=== PATIENT | female | born 1955 | race Caucasian/White ===

== ENCOUNTER → 2020-07-20 09:00 | Outpatient (BNVA) | payer MEDICARE, BC, SELFPAY | PROVIDERS: Family Provider Nurse Practitioner; PCP Nurse Practitioner Family; Visit Provider Nurse Practitioner Family | DX: E61.2 Magnesium deficiency (principal); I10 Essential (primary) hypertension | CPT/HCPCS: 80053; 80061; 83735; 84439; 84443 ==

== ENCOUNTER → 2021-01-04 15:56 | Outpatient (BNVA) | payer MEDICARE, BC, SELFPAY | PROVIDERS: Family Provider Nurse Practitioner; PCP Nurse Practitioner Family; Visit Provider Nurse Practitioner Family | DX: M15.1 Heberden's nodes (with arthropathy) (principal); M25.50 Pain in unspecified joint | CPT/HCPCS: 85651; 86140; 86160; 86162; 86235; 86255; 86376; 86431 ==

== ENCOUNTER → 2022-01-16 10:19 | Outpatient (BNVA) | payer BC, MEDICARE, SELFPAY | PROVIDERS: Family Provider Nurse Practitioner; PCP Nurse Practitioner Family; Visit Provider Family Medicine | DX: N39.0 Urinary tract infection, site not specified (principal) | CPT/HCPCS: 81000 ==

== ENCOUNTER → 2022-01-17 09:21 | Outpatient (BNVA) | payer MEDICARE, BC, SELFPAY | PROVIDERS: Family Provider Nurse Practitioner; PCP Nurse Practitioner Family; Visit Provider Family Medicine | DX: N39.0 Urinary tract infection, site not specified (principal); I10 Essential (primary) hypertension | CPT/HCPCS: 80053; 80061; 85025 ==

== ENCOUNTER → 2022-01-25 09:55 | Outpatient (BNVA) | payer BC, MEDICARE, SELFPAY | PROVIDERS: Family Provider Nurse Practitioner; PCP Nurse Practitioner Family; Visit Provider Nurse Practitioner Family | DX: N39.0 Urinary tract infection, site not specified (principal) | CPT/HCPCS: 81000 ==

== ENCOUNTER → 2022-08-28 14:47 | Outpatient (BNVA) | payer BC, MEDICARE, SELFPAY | PROVIDERS: Family Provider Nurse Practitioner; PCP Nurse Practitioner Family; Visit Provider Nurse Practitioner Family | DX: R05.9 Cough, unspecified (principal) | CPT/HCPCS: 71046 ==

== ENCOUNTER → 2022-09-26 10:29 | Outpatient (BNVA) | payer BC, MEDICARE, SELFPAY | PROVIDERS: Family Provider Nurse Practitioner; PCP Nurse Practitioner Family; Visit Provider Nurse Practitioner Family | DX: R06.2 Wheezing (principal) | CPT/HCPCS: 71046 ==

== ENCOUNTER → 2022-11-07 15:55 | Outpatient (BNVA) | payer BC, MEDICARE, SELFPAY | PROVIDERS: Family Provider Nurse Practitioner; PCP Nurse Practitioner Family; Visit Provider Internal Medicine Cardiovascular Disease | DX: R06.02 Shortness of breath (principal); I10 Essential (primary) hypertension; R07.9 Chest pain, unspecified; R00.2 Palpitations; R53.83 Other fatigue; Z79.01 Long term (current) use of anticoagulants | CPT/HCPCS: 36415; 80048; 83880 ==

== ENCOUNTER → 2022-11-22 08:39 | Outpatient (BNVA) | payer BC, MEDICARE, SELFPAY | PROVIDERS: Family Provider Nurse Practitioner; PCP Nurse Practitioner Family; Visit Provider Internal Medicine Cardiovascular Disease | DX: R00.2 Palpitations (principal); R06.02 Shortness of breath; R42 Dizziness and giddiness; R53.83 Other fatigue | CPT/HCPCS: 80048; 83880 ==

== ENCOUNTER 2022-12-09 13:01 | Outpatient (CLI) | payer BC, MEDICARE, SELFPAY ==
--- NOTE | 2022-12-09 13:30 | USCV_ITS ---
Kendra Rushing Age: 67 Gender: F : 1955 Exam Date: 12/09/2022 13:16 Ordering Phys: Juan Rivas MD ([email or web address]) Technologist: Jag Alexis Exam Location: [facility] Indication: Chest pain/ sob BP: 164 / 95 HR: 49 Rhythm: Other Technical Quality: Adequate MEASUREMENTS (Male / Female) Normal Values 2D ECHO LV Diastolic Diameter PLAX 4.3 cm 4.2 - 5.9 / 3.9 - 5.3 cm LV Systolic Diameter PLAX 2.7 cm IVS Diastolic Thickness 0.9 cm 0.6 - 1.0 / 0.6 - 0.9 cm IVS Systolic Thickness 1.4 cm LVPW Diastolic Thickness 1.3 cm 0.6 - 1.0 / 0.6 - 0.9 cm LVPW Systolic Thickness 1.5 cm LVOT Diameter 2.0 cm LV Ejection Fraction 2D Teich 66.3 % LV Ejection Fraction MOD 2C 61.6 % LV Ejection Fraction 2C AL 64.8 % LA Diameter 3.5 cm LA Width 3.4 cm LA Height 4.6 cm RA Width 3.3 cm RA Height 4.8 cm Aorta at Sinotubular Diameter 2.4 cm IVC Diameter 1.6 cm M-MODE Aortic Annulus Diameter 3.0 cm LA Ao Ratio MM 1.3 MV E Point Septal Separation 0.6 cm DOPPLER AV Peak Velocity 172.3 cm/s LVOT Peak Velocity 99.0 cm/s AV Area Cont Eq vti 1.8 cm squared AV Area Cont Eq pk 1.9 cm squared MV Peak Velocity 100.0 cm/s MV Area PHT 2.8 cm squared Mitral E to A Ratio 0.6 MV E' Velocity 24.5 cm/s Mitral E to MV E' Ratio 5.0 Mitral E to LV E' Lateral Ratio 5.0 Mitral E to LV E' Septal Ratio 5.2 TR Peak Velocity 214.4 cm/s TR Peak Gradient 18.4 mmHg TR Mean Velocity 178.7 cm/s TR Mean Gradient 13.5 mmHg TR Velocity Time Integral 50.0 cm Right Atrial Pressure 3.0 mmHg Pulmonary Artery Systolic Pressu 21.4 mmHg PV Peak Velocity 77.0 cm/s RV Acceleration Time 0.1 s RV Ejection Time 0.3 s RV AcT/ET 0.3 FINDINGS Left Ventricle Normal left ventricular size, systolic function and wall thickness, with no regional wall motion abnormalities. Left ventricular ejection fraction is estimated at 65 %. Normal diastolic function. Right Ventricle Normal right ventricular size and systolic function. Right ventricular systolic pressure 21.4 mmHg. Right Atrium Normal right atrial size. Left Atrium Normal left atrial size. Mitral Valve Structurally normal mitral valve. No mitral valve stenosis. Mild mitral valve regurgitation. Aortic Valve Probably trileaflet aortic valve. No aortic valve stenosis. No aortic valve regurgitation. Tricuspid Valve Structurally normal tricuspid valve. Pulmonic Valve Structurally normal pulmonic valve. Trace pulmonary valve regurgitation. Pericardium No pericardial effusion. Aorta Normal size aortic root and proximal ascending aorta. IVC Normal IVC dimension with >50% respiratory change of the inferior vena cava. CONCLUSIONS 1. Normal left ventricular size, systolic function and wall thickness, with no regional wall motion abnormalities. Left ventricular ejection fraction is estimated at 65 %. Normal diastolic function. 2. Mild mitral valve regurgitation. 3. No prior similar studies to compare. Candie Barker MD (Electronically Signed) Final Date: 09 December 2022 20:15 S
== END 2022-12-09 13:02 | disposition home or self-care (01) ==
LOC: RAD 13:03
PROVIDERS: Family Provider Nurse Practitioner; PCP Nurse Practitioner Family; Visit Provider Internal Medicine Cardiovascular Disease
DX: R07.9 Chest pain, unspecified (principal); R06.02 Shortness of breath; I34.0 Nonrheumatic mitral (valve) insufficiency
CPT/HCPCS: 93306

== ENCOUNTER 2022-12-18 10:26 | Outpatient (CLI) | payer BC, MEDICARE, SELFPAY ==
[2022-12-18 11:14] VITALS: BMI 30.8
--- NOTE | 2022-12-18 11:27 | NMCV_ITS ---
NM jacob perf SPECT r/s* [id number] Kendra Rushing Age: 67 Gender: F : 1955 Exam Date: 12/18/2022 11:27 Ordering Phys: Juan Rivas MD ([email or web address]) Technologist: SASKIA Owen Exam Location: [facility] Indications: CORONARY ANGIOPLASTY STATUS STRESS TEST Please see separate stress test report in [facility] for full findings IMAGE PROTOCOL Rest/Stress 1 Lexiscan Day Radiopharmaceutical Dose (mCi) Administration Site Administered by Rest: Tc-99m 10.9 IV SASKIA Owen Sestamibi Stress:Tc-99m 32.5 IV SASKIA Snider Sestamibi Rest: 18-Dec-2022 60 Discovery 630 Stress: 18-Dec-2022 30 Discovery 630 0.4mg Lexiscan. Images obtained in supine and prone position. SPECT RESULTS Technical Quality: Excellent Raw Data Analysis: Normal Image Corrections: No attenuation or motion correction applied Summed Stress Score: 0 Summed Rest Score: 0 Summed Difference Score: 0 PERFUSION FINDINGS Uniform myocardial tracer uptake with no significant perfusion abnormalities FUNCTIONAL RESULTS (calculated via Gated SPECT) Stress Image LV EF (%): 67 Stress EDV (mL):91 TID: 1.1 Stress ESV (mL):30 FUNCTIONAL FINDINGS: Segmental wall motion analysis revealing no gross wall motion abnormalities IMPRESSIONS 1. Unremarkable Myocardial perfusion imaging. 2. Normal LV ejection fraction of 67%. 3. LV wall motion analysis revealing no gross wall motion abnormalities. 4. Normal LV volume Low probability for coronary ischemia, based on the above findings No similar previous studies are available for comparison Dr Juan Rivas MD FACC (Electronically Signed) Final Date: 19 December 2022 00:30 S
--- NOTE | 2022-12-18 11:27 | ECG_ITS ---
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 Interpretive Statements NAME OF STUDY: LEXISCAN SESTAMIBI STRESS TEST INDICATION: Cpressure/ fatigue, PROCEDURE: At the baseline, the EKG revealed sinus bradycardia with a diffuse nonspecific ST-T changes. The baseline heart was 71 bpm with a blood pressue of 109/84 mm of Hg Lexiscan was infused over a period of 20 seconds. A total of 0.4 milligrams of Lexiscan was infused. The stress phase was continued for a total of 5 minutes. Heart rate at the end of the stress phase was 71 bpm with a blood pressure mm of 134/81 Hg. The EKG at the peak infusion revealed no significant changes. Few PVCs were noted during the recovery phase Sestamibi was injected 20 seconds after the Lexiscan infusion. Heart rate at the end of the recovery phase was 64 bpm with a blood pressure of 108/66 mm of Hg. CONCLUSION: 1. No significant EKG changes with the LexiScan infusion 2. No LexiScan induced chest pain or cardiac arrhythmia 3. Normal blood pressure and heart rate response 4. Sestamibi/sestamibi perfusion scan pending; see separate report. Electronically Signed On 12-21-2022 13:56:59 BLANK DRILLER by Juan Rivas M.D. [id number]
[2022-12-18] MEDS: regadenoson 0.4 Mg/5 ml Syringe IVP (13:05)
[2022-12-18] MEDS: ondansetron 2 mg/ML SDV 2 mL 4 MG IVP (13:20)
[2022-12-18] MEDS: aminophylline 25 mg/mL SDV 10 mL IVP ×2 (13:21→13:23)
[2022-12-18 13:33] VITALS: BP 116/71; PULSE 65
== END 2022-12-18 10:27 | disposition home or self-care (01) ==
LOC: CDL 10:29
PROVIDERS: PCP Nurse Practitioner Family; Visit Provider Internal Medicine Cardiovascular Disease
DX: R07.89 Other chest pain (principal); R53.83 Other fatigue; Z98.61 Coronary angioplasty status
CPT/HCPCS: 36415; 78452; 85379; 93017; 96374; 96375; A9500; J0280; J2405; J2785

== ENCOUNTER → 2023-01-02 15:06 | Outpatient (BNVA) | payer BC, MEDICARE, SELFPAY | PROVIDERS: PCP Nurse Practitioner Family; Visit Provider Nurse Practitioner Family | DX: R60.9 Edema, unspecified (principal) | CPT/HCPCS: 36415; 80048; 83880 ==

== ENCOUNTER 2023-01-10 11:48 | Outpatient (CLI) | payer BC, MEDICARE, SELFPAY ==
--- NOTE | 2023-01-10 11:00 | MR_ITS ---
WS: [id number] MRI HEAD WITH CONTRAST WITH ATTENTION TO THE INTERNAL AUDITORY CANALS TECHNIQUE: Sagittal T1, T2 axial, T2 axial flair, axial susceptibility weighted imaging, axial diffus ion weighted images, and coronal T2 images were obtained. Pre and post T1 axial and post T1 coronal i mages. ADC and FSPGR images. Post gadolinium images with attention to the internal auditory canals. A xial fiesta imaging. CLINICAL INFORMATION: sudden onset hearing loss COMPARISON: None. FINDINGS: No evidence of restricted diffusion to suggest acute ischemia. Ventricular system and basal cisterns are patent. No suspicious intracranial signal abnormalities. Normal posterior fossa. Normal vascular flow voids at the skull base. No extra-axial fluid collections. No evidence of mass or mass effect. M ild mucosal thickening in the paranasal sinuses. Normal posterior nasopharynx and parapharyngeal fat. No hemosiderin on susceptibly weighted images. Proximal 7th and 8th cranial nerves are normal in appearance. Normal trigeminal nerve root entry zone s. No evidence of enhancing IAC or CP angle mass. No abnormal gadolinium enhancement. Normal dural ve nous sinuses. Normal optic chiasm and pituitary infundibulum. Normal cavernous sinuses and Meckel's c ave. MR/MR iac's wo/w con* [id number] IMPRESSION: 1. No evidence of enhancing IAC or CP angle mass. Normal 7th and 8th nerve tom ts. 2. Normal trigeminal nerve root entry zones. 3. No restricted diffusion to suggest acute ischemia. 4. Small amount of fluid in the RIGHT maxillary sinus with mild mucosal thicke temitope. 5. No hemosiderin on susceptibly weighted images. 6. No suspicious intracranial signal abnormalities.
[2023-01-10] MEDS: gadobenate dimeglumine 20 mL vial IV (13:15)
== END 2023-01-10 11:49 | disposition home or self-care (01) ==
LOC: RAD 11:51
PROVIDERS: PCP Nurse Practitioner Family; Visit Provider Otolaryngology
DX: H91.90 Unspecified hearing loss, unspecified ear (principal)
CPT/HCPCS: 70553; A9577

== ENCOUNTER → 2023-01-17 12:20 | Outpatient (BNVA) | payer BC, MEDICARE, SELFPAY | PROVIDERS: PCP Nurse Practitioner Family; Visit Provider Otolaryngology | DX: Z09 Encounter for follow-up examination after completed treatment for conditions other than malignant neoplasm (principal); I10 Essential (primary) hypertension; R60.9 Edema, unspecified | CPT/HCPCS: 36415; 80048 ==

== ENCOUNTER 2023-01-22 16:02 | Observation (INO) | payer BC, MEDICARE, SELFPAY ==
[2023-01-22] VITALS (9 sets, daily range): BP systolic 111–141; BP diastolic 63–89; PULSE 47–98; RESP 14–16; TEMP 36.7; O2SAT 93–100; BMI 31.3; BMI 32.2
--- NOTE | 2023-01-22 16:17 | CTR_ITS ---
PROCEDURE INFORMATION: Exam: CT Head Without Contrast Exam date and time: 01/22/2023 4:55 PM Age: 67 years old Clinical indication: Dizziness; Additional info: Dizziness/loss of balance - 42 hrs TECHNIQUE: Imaging protocol: Computed tomography of the head without contrast. Radiation optimization: All CT scans at this facility use at least one of these dose optimization techniques: automated exposure control; mA and/or kV adjustment per patient size (includes targeted exams where dose is matched to clinical indication); or iterative reconstruction. REPORTING DATA: Count of CT and Cardiac NM exams in prior 12 months: This patient has received [address] and 0 known cardiac nuclear medicine studies in the 12 months prior to the current study. COMPARISON: MR ricardo's wo/w con* [id number] 01/10/2023 12:10 PM RADIATION DOSE METRICS: Total DLP (mGy-cm): 1068.38 FINDINGS: Brain: There is moderate cortical atrophy. Low-density changes in the white matter are consistent with nonspecific small vessel chronic ischemic change. There is no intracranial mass, hemorrhage or edema. Cerebral ventricles: No ventriculomegaly. Paranasal sinuses: There is mucosal thickening in the right maxillary antrum and a small amount of fluid in keeping with some sinus disease. Mastoid air cells: Visualized mastoid air cells are well aerated. Bones/joints: Unremarkable. No acute fracture. Soft tissues: Unremarkable. CT/CT head wo con* [id number] IMPRESSION: 1. Right maxillary sinus disease 2. No acute intracranial finding.
[2023-01-22 16:21] LABS: Glucose Point of Care 151 mg/dL (70-110)
--- NOTE | 2023-01-22 16:23 | W.ED.NEUROSD ---
HPI - Neuro Symptoms/Deficit General: Chief Complaint: Neuro Symptoms/Deficit Stated Complaint: balance issue/left side numb Time Seen by Provider: 01/22/23 16:13 Source: patient Mode of arrival: ambulatory History of Present Illness: 67-year-old female presents emergency complaining dizziness weakness imbalance left-sided numbness on her face and arm. Her last known well was 42 hours ago at 10:00 on 313 she woke up with her symptoms the following morning. She states she feels like she is drunk loses balance cannot walk straight she denies difficulty speech or swallowing or vision. She just felt very weak. No previous stroke she is not diabetic she does have a history of hypertension. Family reported this been going on intermittently for several months Onset (ago): hour(s) (42) Location: left face and left leg History of same: No Severity: moderate Quality: numb Relieving factors: none Exacerbating factors: none Associated symptoms: Reports weakness; Deny chest pain, cough, diaphoresis, fevers/chills, headache(s), anorexia, malaise, nausea, seizures, short of breath, syncope, tingling, vertigo or vomiting Review of Systems Const: Denies: malaise or diaphoresis ENMT: Denies: throat pain, ear or mastoid pain, nasal discharge or nasal congestion Card: Denies: chest pain or syncope Resp: Denies: dyspnea, productive cough or non-productive cough GI: Denies: nausea or vomiting : Denies: flank pain, difficulty voiding, dysuria, urinary frequency or urinary urgency Skin/Breast: Denies: rash or pruritus Neuro: Reports: dizziness; Denies: headache(s) or vertigo [facility] ED PFSH: Medical History Essential hypertension Fixation hardware in spine Lupus Thoracic spondylosis Surgical History History of carpal tunnel surgery History of cataract extraction bilateral History of tonsillectomy and adenoidectomy Hx of appendectomy Hx of cervical spine surgery Hx of cholecystectomy Hx of knee surgery Hx of rotator cuff surgery Family History Brother CAD (coronary artery disease) CABG x 4 Mother CAD (coronary artery disease) hole in heart - pacemaker Grandmother CAD (coronary artery disease) hole in heart Grandfather Cancer Lung disease Father Dementia Stroke Denies family history of Diabetes Clotting disorder Chronic kidney disease (CKD) Suicide Anesthesia complication Bleeding disorder Social History Smoking and tobacco status: former smoker Alcohol intake: never NIH stroke score NIHSS: Level Of Consciousness - 1a: 0 Level Of Consciousness Questions - 1b: Both Correct Level Of Consciousness Commands - 1c: Both Correct Best Gaze - 2: Normal Visual Roche - 3: No Visual Loss Facial Palsy - 4: Normal Motor Arm Right - 5: No Drift Motor Arm Left - 5: No Drift Motor Leg Right - 6: No Drift Motor Leg Left - 6: No Drift Limb Ataxia - 7: Absent Sensory - 8: Mild To Moderate Loss Best Language - 9: No Aphasia Dysarthia - 10: Normal Extinction And Inattention - 11: 0 Score: Total Score: 1 Physical Exam Const: GENERAL APPEARANCE: cooperative and comfortable ORIENTATION/CONSCIOUSNESS: Yes awake, Yes oriented to person, Yes oriented to place and Yes oriented to time HENMT: COMMON NORMALS: normocephalic, atraumatic and hearing grossly normal bilaterally HEAD & SCALP: normocephalic and atraumatic Resp: COMMON NORMALS: normal respiratory effort, No retractions, No use of accessory muscles and clear to auscultation bilaterally AUSCULTATION: clear to auscultation bilaterally Cardio: COMMON NORMALS: regular rate, regular rhythm and No murmurs present (Cardio) RATE: regular rate RHYTHM: regular rhythm GI: COMMON NORMALS: Soft to palpation and No hepatosplenomegaly present AUSCULTATION: Yes normoactive bowel sounds PALPATION: Yes Soft to palpation, No Tenderness to palpation present (GI), No Guarding due to palpation present (GI) and Yes No hepatosplenomegaly present Extremity: COMMON NORMALS: normal to inspection, capillary refill normal, no clubbing, cyanosis or edema, no calf tenderness and no pedal edema Neuro: SENSORIUM/ORIENTATION: Yes oriented to person, Yes oriented to place and Yes oriented to time Skin: COMMON NORMALS: no rashes or lesions noted GENERAL SKIN EXAM: no rashes or lesions noted Course Vital Signs: Vital signs: Vital Signs Temperature 98.4 F 01/23/23 04:00 Pulse Rate 56 L 01/23/23 05:42 Respiratory Rate 16 01/23/23 05:42 Blood Pressure 110/54 01/23/23 04:00 Pulse Oximetry 93 01/23/23 05:42 Oxygen Delivery Me thod 01/23/23 05:42 MDM - Neuro Symptoms/Deficit Medical Decision Making NIH is low. Suspect patient may have posterior stroke symptoms. Additionally patient is bradycardic at times in the 40s and symptomatic even while lying down. Potassium slightly low. Placed on observation for further evaluation for possibility of posterior circulation stroke as well as her bradycardia. Medical Records I reviewed the patient's medical records. Lab Data I reviewed the patient's lab results. 01/22/23 16:16 01/22/23 16:[address] 01/22/23 16:17 IMPRESSION: 1. Right maxillary sinus disease 2. No acute intracranial finding. Laboratory Results WBC 9.4 10^3/uL (4.0-10.0) 01/22/23 16:16 RBC 5.26 10^6/uL (4.1-5.3) 01/22/23 16:16 Hgb 15.8 g/dL (11.5-15.3) H 01/22/23 16:16 Hct 46.6 % (37.0-47.0) 01/22/23 16:16 MCV 88.6 fl (81-99) 01/22/23 16:16 MCH 30.0 pg (28.0-34.0) 01/22/23 16:16 MCHC 33.9 g/dL (30.0-36.0) 01/22/23 16:16 RDW 13.6 % (12.1-15.1) 01/22/23 16:16 Plt Count 307 10^3/cmm (130-400) 01/22/23 16:16 MPV 10.5 fL (7.4-10.4) H 01/22/23 16:16 Neut % (Auto) 62.5 % 01/22/23 16:16 Lymph % (Auto) 27.2 % 01/22/23 16:16 Faulkner % (Auto) 7.6 % 01/22/23 16:16 Eos % (Auto) 1.3 % 01/22/23 16:16 Baso % (Auto) 0.9 % 01/22/23 16:16 Neut # (Auto) 5.85 10^3/uL (1.8-7.7) 01/22/23 16:16 Lymph # (Auto) 2.6 10^3/uL (0.8-4.8) 01/22/23 16:16 Faulkner # (Auto) 0.7 10^3/uL (0.2-0.9) 01/22/23 16:16 Eos # (Auto) 0.1 10^3/uL (0.0-0.8) 01/22/23 16:16 Baso # (Auto) 0.1 10^3/uL (0.0-0.1) 01/22/23 16:16 Nucleated RBC % (auto) 0 % 01/22/23 16:16 Nucleated RBCs # 0.0 /100WBC 01/22/23 16:16 D-Dimer 0.48 ug/mIFEU (0-0.59) 01/22/23 16:16 Sodium 140 mmol/L (136-145) 01/22/23 16:16 Potassium 3.5 mmol/L (3.5-5.1) 01/22/23 16:16 Chloride 97 mmol/L (98-107) L 01/22/23 16:16 Carbon Dioxide 29 mmol/L (22-29) 01/22/23 16:16 Anion Gap 17.5 (5-19) 01/22/23 16:16 BUN 13 mg/dL (8-23) 01/22/23 16:16 Creatinine 0.8 mg/dL (0.5-0.9) 01/22/23 16:16 GFR Calculation 71.1 mL/min (90-130) L 01/22/23 16:16 Glucose 127 mg/dL (65-115) H 01/22/23 16:16 POC Glucose 151 mg/dL (70-110) H 01/22/23 16:10 Calculated Osmolality 292 mOsm/kg (285-295) 01/22/23 16:16 Calcium 9.7 mg/dL (8.5-10.5) 01/22/23 16:16 Total Bilirubin 0.3 mg/dL (0.15-1.2) 01/22/23 16:16 AST 15 U/L (0-32) 01/22/23 16:16 ALT 13 U/L (0-33) 01/22/23 16:16 Alkaline Phosphatase 67 U/L (35-105) 01/22/23 16:16 Total Protein 7.0 g/dL (6.6-8.7) 01/22/23 16:16 Albumin 4.2 g/dL (3.5-5.2) 01/22/23 16:16 Globulin 2.8 g/dL (1.3-4.6) 01/22/23 16:16 Discharge Plan Discharge Patient Disposition: Placed in Observation Admit Provider: Abilio Burgess Clinical Impression: Acute ischemic multifocal posterior circulation stroke, Bradycardia Condition: Stable Coding Level of Care Code ED Kiln Firer for Suresh Ochoa
--- NOTE | 2023-01-22 16:26 | ECG_ITS ---
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
[2023-01-22 16:36] LABS: Basophils # 0.1 10^3/uL (0.0-0.1); Basophils % 0.9 %; Eosinophils # 0.1 10^3/uL (0.0-0.8); Eosinophils % 1.3 %; Hematocrit 46.6 % (37.0-47.0); Hemoglobin 15.8 g/dL (11.5-15.3); Lymphocytes # 2.6 10^3/uL (0.8-4.8); Lymphocytes % 27.2 %; Mean Corpuscular HGB Conc 33.9 g/dL (30.0-36.0); Mean Corpuscular Volume 88.6 fl (81-99); Mean Platelet Volume 10.5 fL (7.4-10.4); Monocytes # 0.7 10^3/uL (0.2-0.9); Monocytes % 7.6 %; Neutrophils # 5.85 10^3/uL (1.8-7.7); Neutrophils % 62.5 %; Nucleated Red Blood Cells % 0 %; Platelet Count 307 10^3/cmm (130-400); Red Blood Count 5.26 10^6/uL (4.1-5.3); Red Cell Distribution Width 13.6 % (12.1-15.1); White Blood Count 9.4 10^3/uL (4.0-10.0)
[2023-01-22] MEDS: sodium chloride 0.9% 1,000 ML 100 ML IV (16:46)
[2023-01-22 16:50] LABS: Alanine Aminotransferase 13 U/L (0-33); Albumin Level 4.2 g/dL (3.5-5.2); Alkaline Phosphatase 67 U/L (35-105); Anion Gap 17.5 (5-19); Aspartate Amino Transferase 15 U/L (0-32); Blood Urea Nitrogen 13 mg/dL (8-23); Calcium 9.7 mg/dL (8.5-10.5); Carbon Dioxide 29 mmol/L (22-29); Chloride 97 mmol/L (98-107); Globulin 2.8 g/dL (1.3-4.6); Glomerular Filtration Rate 71.1 mL/min (90-130); Glucose 127 mg/dL (65-115); Osmolality Calculated 292 mOsm/kg (285-295); Potassium 3.5 mmol/L (3.5-5.1); Sodium 140 mmol/L (136-145); Total Bilirubin 0.3 mg/dL (0.15-1.2)
--- NOTE | 2023-01-22 18:21 | PC.NURSE ---
PT PLACED ON CONTINUOUS NIBP, SPO2, AND CM
--- NOTE | 2023-01-22 18:55 | PC.NURSE ---
4 POINT RESTRAINT DC'D PHYSICIAN NOTIFIED
--- NOTE | 2023-01-22 19:56 | PC.NURSE ---
called CSU. Room is not clean at this time.
--- NOTE | 2023-01-22 20:11 | P.HP_ITS ---
Providers/Chief Complaint Admitting Physician: Abilio Burgess MD Primary Care Provider: Corrina Mccallum NP Chief Complaint: balance issue/left side numb History of Present Illness Kendra Rushing is a 67 year old female who is seen Dr. Rivas outpatient Presented with chief complaint of lower extremity weakness and bradycardia. Patient is status post unremarkable MRI head unremarkable, her work-up has been unremarkable so far patient is stating that she has been experiencing chest pain which she is describing as heaviness which is no aggravating or relieving factors, she has no history of NC or CHF or bradycardia in the past. She is on atenolol for her hypertension. Her Lasix and potassium has been readjusted recently. She carries history of hypertension. Patient is stating that she could not get up because she felt her legs were so weak however there are no focal deficits on my examination, heart rate is below 60 with normal blood pressure, she is very fatigued and lethargic endorsing feeling cold. Her recent echo and MRI results are unremarkable I would not repeat at this point Hold atenolol watch overnight put pacemaker pads on Full code serial troponin and EKGs Review of Systems Const: Denies: fever(s) Eyes: Denies: change in vision ENMT: Denies: throat pain Card: Reports: chest pain Resp: Denies: dyspnea GI: Denies: abdominal pain : Denies: flank pain Musc: Denies: neck pain Skin/Breast: Denies: rash Neuro: Denies: headache(s) Psych: Reports: anxiety Endo: Denies: polyuria Corby/Lymph: Denies: easy bruising All/Imm: Denies: urticaria Medications/Allergies Home Medications Medication Instructions Recorded Confirmed Last Taken Type fluticasone propionate 50 1 spray intranasal DAILY 07/12/20 01/17/23 Unknown History mcg/actuation nasal spray,suspension (Flonase Allergy Relief) lactobacillus combination no.8 PO 07/12/20 01/17/23 Unknown History [Adult Probiotic] loratadine 10 mg tablet (Allergy 10 mg PO DAILY 07/12/20 01/17/23 Unknown History Relief (loratadine)) alpha gpc PO 01/04/21 01/17/23 Unknown History magnesium oxide,aspartate,citr mg PO 01/04/21 01/17/23 Unknown History (Triple Magnesium Complex) ondansetron HCl 4 mg tablet See Rx Instructions .Route 10/29/21 01/17/23 Unknown Rx .COMPLEX #30 tabs atenolol 50 mg tablet See Rx Instructions .Route 03/20/22 01/17/23 Unknown Rx .COMPLEX #135 tabs gabapentin 300 mg capsule 300 mg PO TID #270 caps 09/30/22 01/17/23 Unknown Rx celecoxib 200 mg capsule 200 mg PO BID 11/07/22 01/17/23 Unknown History cyanocobalamin-methylcobalamin 600 1 tab sublingual DAILY 11/07/22 01/17/23 Unk nown History mcg-600 mcg sublingual tablet estradiol-norethindrone acet 0.5 1 tab PO DAILY 11/07/22 01/17/23 Unknown History mg-0.1 mg tablet famotidine 20 mg tablet 20 mg PO DAILY 11/07/22 01/17/23 Unknown History losartan 25 mg tablet 25 mg PO DAILY 30 days #30 tabs 11/07/22 01/17/23 Unknown Rx milk thistle 175 mg tablet 175 mg PO BID 11/07/22 01/17/23 Unknown History miscellaneous medical supply 11/07/22 01/17/23 Unknown History psyllium 500 mg capsule 0.52 g PO DAILY 11/07/22 01/17/23 Unknown History furosemide 20 mg tablet (Lasix) 40 mg PO DAILY #60 tabs 12/17/22 01/17/23 Unknown Rx hydrochlorothiazide 25 mg tablet See Rx Instructions .Route 12/20/22 01/17/23 Unknown Rx .COMPLEX #180 tabs potassium chloride 20 mEq 40 meq PO DAILY #60 tabs 01/20/23 Unknown Rx tablet,extended release albuterol sulfate 90 mcg/actuation See Rx Instructions .Route 01/21/23 Unknown Rx aerosol inhaler .COMPLEX #8.5 grams Allergies Allergy/AdvReac Type Severity Reaction Status Date / Time nifedipine Allergy Intermediate algy-leg Verified 01/17/23 11:27 swelling acetaminophen Allergy unknown Verified 01/17/23 11:27 adhesive tape Allergy unknown Verified 01/17/23 11:27 codeine Allergy unknown Verified 01/17/23 11:27 [From Tylenol-Codeine] latex Allergy unknown Verified 01/17/23 11:27 PFSH Acute PFSH: Medical History Essential hypertension Fixation hardware in spine Lupus Thoracic spondylosis Surgical History History of carpal tunnel surgery History of cataract extraction bilateral History of tonsillectomy and adenoidectomy Hx of appendectomy Hx of cervical spine surgery Hx of cholecystectomy Hx of knee surgery Hx of rotator cuff surgery Family History Brother CAD (coronary artery disease) CABG x 4 Mother CAD (coronary artery disease) hole in heart - pacemaker Grandmother CAD (coronary artery disease) hole in heart Grandfather Cancer Lung disease Father Dementia Stroke Denies family history of Diabetes Clotting disorder Chronic kidney disease (CKD) Suicide Anesthesia complication Bleeding disorder Social History Smoking and tobacco status: former smoker Alcohol intake: never Vitals/I&O/Wt Last Vital Signs Temp 98.1 F 01/22/23 16:08 Pulse 98 01/22/23 18:30 Resp 16 01/22/23 18:30 BP 125/74 01/22/23 18:22 Pulse Ox 100 01/22/23 18:30 O2 Del Method 01/22/23 18:30 01/22/23 01/22/23 01/22/23 06:59 14:59 22:59 Intake Total 1000 / 1000 Balance 1000 / 1000 Weight last 48 hrs Weight 90.718 kg Physical Exam Narrative: Patient awake and alert Sinus bradycardia No active chest pain Hemodynamically stable Fatigued and lethargic Awake and alert Nonfocal neuro exam Hemogram: Dehydrated S1, S2 Pleasant and cooperative Appears stated age No active distress Data 01/22/23 16:16 01/22/23 16:16 A&P Assessment and plan (1) Symptomatic bradycardia: Plan Symptomatic bradycardia Sinus bradycardia on EKG Check TSH Recent stress test unremarkable MRI head unremarkable No active signs of stroke Nonfocal neuro exam Most likely this is drug-induced Hold atenolol Serial troponin and EKGs Patient is hemodynamically stable at this point I will have her on cardiac diet for now Monitor overnight on telemetry Full code DVT prophylaxis on board Clinically dehydrated I will give her IV fluids overnight Hold Lasix Attestations Medical Necessity Statement*: Anticipate less than 2 midnight Diagnoses Symptomatic bradycardia R00.1
[2023-01-22 20:15] LABS: Charge for UA Resulting for Rev
--- NOTE | 2023-01-22 20:15 | ECG_ITS ---
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1955 Requested By: Abilio Burgess Order Number: [id number] Reading MD: ABILIO BOWEN Measurements Intervals [place] Rate: 46 P: 56 IA: 183 QRS: 15 QRSD: 92 T: 64 QT: 516 QTc: 454 Interpretive Statements SINUS BRADYCARDIA POSSIBLE RIGHT VENTRICULAR CONDUCTION DELAY [RSR (QR) IN V1/V2] ST DEVIATION AND MODERATE T-WAVE ABNORMALITY, CONSIDER ANTERIOR ISCHEMIA [-0.1+ mV T-WAVE IN V3/V4] Compared to ECG 01/22/2023 16:26:57 T-wave abnormality now present Possible ischemia now present Incomplete right bundle-branch block no longer present ST (T wave) deviation no longer present Electronically Signed On 01-25-2023 23:41:50 CDT by ABILIO BOWEN [id number]
[2023-01-22 20:25] LABS: Add Urine Microscopic? NO; Bilirubin Urine Neg (Negative); Blood Urine Neg (Negative); Glucose Urine UA Norm (Normal); Ketones Urine Negative (Negative); Leukocyte Esterase Urine Negative (Negative); Nitrate Urine Negative (Negative); Protein Urine Neg (Negative); Urine Appearance Clear (CLEAR); Urine Color Yellow (Yellow); Urobilinogen Urine Norm (Negative); pH Urine 7 (5-7)
--- NOTE | 2023-01-22 20:27 | USCV_ITS ---
Kendra Rushing Age: 67 Gender: F : 1955 Exam Date: 01/22/2023 23:40 Ordering Phys: Abilio Burgess MD Technologist: BERYL Exam Location: [facility] [place] Indication: dizziness, weakness, left-sided numbness, history of HTN, bradycardia. No history of cardiac intervention per patient. BP: 125 / 74 HR: 50 Rhythm: Sinus bradycardia Technical Quality: Adequate MEASUREMENTS (Male / Female) Normal Values 2D ECHO LV Diastolic Diameter PLAX 4.1 cm 4.2 - 5.9 / 3.9 - 5.3 cm LV Systolic Diameter PLAX 2.6 cm IVS Diastolic Thickness 1.5 cm 0.6 - 1.0 / 0.6 - 0.9 cm IVS Systolic Thickness 1.6 cm LVPW Diastolic Thickness 1.3 cm 0.6 - 1.0 / 0.6 - 0.9 cm LVPW Systolic Thickness 1.8 cm LVOT Diameter 2.1 cm LV Ejection Fraction 2D Teich 66.1 % LV Ejection Fraction MOD 2C 70.5 % LV Ejection Fraction 2C AL 69.4 % LA Diameter 4.0 cm LA Width 4.6 cm LA Height 6.0 cm RA Width 3.8 cm RA Height 5.2 cm Aorta at Sinotubular Diameter 2.6 cm IVC Diameter 1.7 cm M-MODE Aortic Annulus Diameter 2.9 cm LA Ao Ratio MM 1.4 MV E Point Septal Separation 0.6 cm DOPPLER AV Peak Velocity 158.0 cm/s LVOT Peak Velocity 81.0 cm/s AV Area Cont Eq vti 2.0 cm squared AV Area Cont Eq pk 1.7 cm squared MV Peak Velocity 108.0 cm/s MV Area PHT 5.0 cm squared Mitral E to A Ratio 0.8 MV E' Velocity 42.0 cm/s Mitral E to MV E' Ratio 8.0 Mitral E to LV E' Lateral Ratio 8.5 Mitral E to LV E' Septal Ratio 7.5 TR Peak Velocity 188.0 cm/s TR Peak Gradient 14.1 mmHg TV Peak E Velocity 46.0 cm/s Right Atrial Pressure 5.0 mmHg Pulmonary Artery Systolic Pressu 19.1 mmHg PV Peak Velocity 88.0 cm/s RV Acceleration Time 0.1 s RV Ejection Time 0.4 s RV AcT/ET 0.2 FINDINGS Left Ventricle Normal left ventricular size, systolic function and wall thickness, with no regional wall motion abnormalities. Left ventricular ejection fraction is estimated at 60 %. Grade I/IV diastolic dysfunction (abnormal relaxation filling pattern), normal to mildly elevated filling pressures. Right Ventricle The right ventricle is normal in size and function. Right Atrium The right atrium is normal in size. Left Atrium The left atrium is normal in size. Mitral Valve Moderately thickened mitral valve. Moderate mitral annular calcification. Mild-moderate mitral valve regurgitation. Aortic Valve Moderate aortic valve calcification. No aortic valve stenosis. Tricuspid Valve Structurally normal tricuspid valve without significant stenosis, Trace regurgitation. Pulmonary artery systolic pressure is normal. Pulmonic Valve Structurally normal pulmonic valve without significant stenosis. There is no pulmonic regurgitation. Pericardium Normal pericardium without effusion. Aorta Normal ascending aorta dimension. IVC The inferior vena cava appears normal. CONCLUSIONS 1-Normal left ventricular size, systolic function and wall thickness, with no regional wall motion abnormalities. Left ventricular ejection fraction is estimated at 60 %. Grade I/IV diastolic dysfunction (abnormal relaxation filling pattern), normal to mildly elevated filling pressures. 2-Moderately thickened mitral valve. Moderate mitral annular calcification. Mild-moderate mitral valve regurgitation. 3-Structurally normal tricuspid valve without significant stenosis, Trace regurgitation. Pulmonary artery systolic pressure is normal. 4-There is no pericardial effusion. 5-Right atrial pressure is around 5 mm of mercury. Abilio Calero MD (Electronically Signed) Final Date: 23 January 2023 19:49 S
[2023-01-22 20:46] LABS: D Dimer 0.48 ug/mIFEU (0-0.59)
[2023-01-22 21:12] LABS: Troponin(5th) Baseline 7 ng/L (0-10)
[2023-01-22] MEDS: gabapentin 300 mg Capsule PO (21:13)
[2023-01-22] MEDS: enoxaparin 40 mg/0.4 mL Syringe SUBCUT (21:13)
[2023-01-22] MEDS: sodium chloride 0.9% 1,000 ML 75 ML IV (21:14)
[2023-01-22 21:15] LABS: Thyroid Stimulating Hormone 2.97 uIU/mL (0.27-4.20)
--- NOTE | 2023-01-22 22:25 | ECG_ITS ---
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1955 Requested By: Abilio Burgess Order Number: [id number] Reading MD: ABILIO BOWEN Measurements Intervals [place] Rate: 57 P: 24 NM: 186 QRS: 23 QRSD: 95 T: 18 QT: 476 QTc: 467 Interpretive Statements SINUS BRADYCARDIA WITH OCCASIONAL VENTRICULAR PREMATURE COMPLEXES MODERATE T-WAVE ABNORMALITY, CONSIDER ANTERIOR ISCHEMIA [-0.1+ mV T-WAVE IN V3/V4] Compared to ECG 01/22/2023 18:00:38 Ventricular premature complex(es) now present T-wave abnormality still present Possible ischemia still present Electronically Signed On 01-25-2023 23:46:04 CDT by ABILIO BOWEN [id number]
[2023-01-23] VITALS (64 sets, daily range): BP systolic 110–149; BP diastolic 54–102; PULSE 49–86; RESP 8–25; TEMP 36.6–37; O2SAT 85–96
--- NOTE | 2023-01-23 02:30 | ECG_ITS ---
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: : 1955 Requested By: Abilio Burgess Order Number: [id number] Reading MD: ABILIO BOWEN Measurements Intervals [place] Rate: 50 P: 22 [place]: 176 QRS: 17 QRSD: 102 T: 14 QT: 503 QTc: 459 Interpretive Statements SINUS BRADYCARDIA ST DEVIATION AND MODERATE T-WAVE ABNORMALITY, CONSIDER ANTERIOR ISCHEMIA [-0.1+ mV T-WAVE IN V3/V4] Compared to ECG 01/22/2023 22:25:26 Ventricular premature complex(es) no longer present T-wave abnormality still present Possible ischemia still present Electronically Signed On 01-25-2023 23:45:53 CDT by ABILIO BOWEN [id number]
[2023-01-23 04:51] LABS: Troponin 5 6HR 8.11 ng/L (0-10)
[2023-01-23 04:53] LABS: Blood Urea Nitrogen 11 mg/dL (8-23); Calcium 8.6 mg/dL (8.5-10.5); Carbon Dioxide 27 mmol/L (22-29); Chloride 105 mmol/L (98-107); Glomerular Filtration Rate 71.1 mL/min (90-130); Glucose 91 mg/dL (65-115); Osmolality Calculated 293 mOsm/kg (285-295); Phosphorus 3.2 mg/dL (2.5-4.5); Sodium 142 mmol/L (136-145); Troponin 5 6HR Delta 0.91 ng/L (0-12)
--- NOTE | 2023-01-23 05:35 | PM.PN ---
Subjective Subjective: Patient was bradycardic overnight Blood pressure has remained stable Afebrile TSH has remained normal Complaining of fatigue Complaining of leg cramps Vitals/I&O/Wt Last Vital Signs Temp 98.4 F 01/23/23 04:00 Pulse 55 L 01/23/23 04:35 Resp 18 01/23/23 04:00 BP 110/54 01/23/23 04:00 Pulse Ox 93 01/23/23 04:00 O2 Del Method 01/23/23 04:00 01/22/23 01/22/23 01/23/23 14:59 22:59 06:59 Intake Total 1300 / 1300 100 / 1400 Output Total 0 / 0 Balance 1300 / 1300 100 / 1400 Weight last 48 hrs Weight 93.44 kg Weight 90.718 kg Physical Exam Narrative: S1, S2 Sinus bradycardia Awake and alert Nonfocal neurologic GCS 15 Appropriate mood and affect EOMI, PERRLA Nonfocal neuro exam No audible stridor or wheezing Data 01/22/23 16:16 01/23/23 04:10 A&P Assessment and plan (1) Symptomatic bradycardia: (2) Fatigue: (3) Fatigue: (4) Positive IMKA (antinuclear antibody): (5) Lupus: Plan 67-year female who recently had normal stress test, MRI head unremarkable presented with chief complaint of worsening of shortness of breath, leg weakness and bradycardia Symptomatic bradycardia Sinus bradycardia on EKG TSH normal Unremarkable troponin No active chest pain Monitor 1 more day Patient will be discharged on Holter monitor versus event monitor Atenolol discontinued Atenolol induced bradycardia Recent echo was unremarkable other than diastolic function No signs of coronary ischemia Could be due to underlying autoimmune disease Full code Cardiac diet DVT prophylaxis on board Hypertension history: Discontinue hydrochlorothiazide, continue losartan Attestations Medical Necessity Statement*: Possible discharge tomorrow Diagnoses Symptomatic bradycardia R00.1 Fatigue R53.83 Fatigue R53.83 Positive MIKA (antinuclear antibody) R76.8 Lupus M32.9
[2023-01-23] MEDS: gabapentin 300 mg Capsule PO ×3 (08:53→21:16)
[2023-01-23] MEDS: famotidine 20 mg Tablet PO (08:57)
--- NOTE | 2023-01-23 10:14 | PC.CHAP ---
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 operator tool visit [] Patient/Family/Request visit [] Outpatient visit [] Follow-up visit [] Physician referral [] Code/Alert [x] Routine visit [] Staff referral [] Actively dying [] Patient sleeping [] Family support [] [] Out of room [] Palliative care [] [x] Receiving care in room [] Pre-surgical visit [] Trauma [] Long length of stay [] ICU visit [] Other: Relational/Emotional Strength [x] Patient feels connected with others/family/visitors/staff [] Distress [] Loneliness/isolation [] Abandonment Spirituality of Patient [x] Person of Ruth [place] [] Attends Church of their [place] [x] Believes in Prayer [] Reads Bible or Episcopal materials [] There are Spiritual issues to be addressed Associate Merchandiser Interventions [x] Prayer [x] Active listening [x] Non-anxious presence [x] Spiritual/emotional support [] Crisis/trauma care [x] Spiritual counseling [] Bereavement support [] Provided bereavement packet [] Provided Bible/devotional materials [] Provided toy/stuffed animal, coloring book to patient or family member [] Provided Communion [] Anointing/Vernalis [] Salvation [x] Completed spiritual assessment [] Other: Impact on Illness or Injury [] Angry [] Fearful [] Anxious [] Often cries [] Exhaustion [] Unable to work [] Unable to attend yazidism [] Unable to walk/stand [] Unable to read [] Unable to drive [] Unable to eat/drink [] Unable to sleep [] Unable to be with family [] Patient intubated [] Other: Summary senior in some pain [place] doesn't know about her health feels good has a good attitude well go home Time spent with patient 10 mins
[2023-01-23] MEDS: losartan 50 mg Tablet 25 MG PO (11:07)
[2023-01-23] MEDS: ondansetron 2 mg/ML SDV 2 mL 4 MG IVP (11:07)
[2023-01-23] MEDS: potassium chloride ER 20 mEq Tablet 40 MEQ PO (11:16)
--- NOTE | 2023-01-23 12:41 | MR_ITS ---
WS: [id number] MRI HEAD WITHOUT CONTRAST TECHNIQUE: Sagittal T1, T2 axial, T2 axial FLAIR, axial and coronal T1 images, axial susceptibility w eighted imaging, axial diffusion weighted images, and coronal T2 images were obtained. CLINICAL INFORMATION: dysphagia COMPARISON: MRI January 10, 2023 FINDINGS: No evidence of restricted diffusion to suggest acute ischemia. Ventricular system and basal cisterns are patent. Mild vessel changes. Mild parenchymal volume loss. Normal posterior fossa. Normal vascula r flow voids at the skull base. No extra-axial fluid collections. No evidence of mass or mass effect. Small amount of fluid RIGHT maxillary sinus. Mastoid air cells are well aerated. Normal posterior lilian opharynx. Normal parapharyngeal fat. No hemosiderin on the susceptibly weighted images. Normal optic chiasm and pituitary infundibulum. Temporal lobes and hippocampal formations are normal in appearance . Normal cavernous sinuses and Meckel's cave. MR/MR head wo con* [id number] IMPRESSION: 1. No evidence of restricted diffusion to suggest acute ischemia. 2. Mild small vessel changes with mild parenchymal volume loss. 3. RIGHT maxillary sinusitis. 4. Mastoid air cells are well aerated. 5. No hemosiderin and on susceptibly weighted images.
--- NOTE | 2023-01-23 12:45 | XRR_ITS ---
PROCEDURE INFORMATION: Exam: XR Chest Exam date and time: 01/23/2023 2:05 PM Age: 67 years old Clinical indication: Shortness of breath; Additional info: SOB TECHNIQUE: Imaging protocol: Radiologic exam of the chest. Views: 1 view. COMPARISON: CR XR chest 2V* [id number] 09/26/2022 10:42 AM FINDINGS: Lungs: Unremarkable. No consolidation. Pleural spaces: Unremarkable. No pleural effusion. No pneumothorax. Heart/Mediastinum: Unremarkable. No cardiomegaly. Bones/joints: Postsurgical hardware is seen in the cervical spine stable since prior XR/XR chest 1V portable [id number] IMPRESSION: No acute findings. Stable surgical hardware in the cervical spine
[2023-01-23] MEDS: sodium chloride 0.9% 1,000 ML 75 ML IV (14:50)
[2023-01-23] MEDS: enoxaparin 40 mg/0.4 mL Syringe SUBCUT (21:16)
[2023-01-24] VITALS (18 sets, daily range): BP systolic 82–167; BP diastolic 60–108; PULSE 54–85; RESP 8–22; TEMP 36.1–36.8; O2SAT 89–98
[2023-01-24] MEDS: sodium chloride 0.9% 1,000 ML 75 ML IV (02:14)
[2023-01-24 05:21] LABS: Basophils # 0.1 10^3/uL (0.0-0.1); Basophils % 1.1 %; Eosinophils # 0.2 10^3/uL (0.0-0.8); Eosinophils % 2.3 %; Hematocrit 40.9 % (37.0-47.0); Hemoglobin 13.8 g/dL (11.5-15.3); Lymphocytes # 2.9 10^3/uL (0.8-4.8); Lymphocytes % 37.1 %; Mean Corpuscular HGB Conc 33.7 g/dL (30.0-36.0); Mean Corpuscular Hemoglobin 29.9 pg (28.0-34.0); Mean Corpuscular Volume 88.7 fl (81-99); Mean Platelet Volume 10.3 fL (7.4-10.4); Monocytes # 0.6 10^3/uL (0.2-0.9); Neutrophils # 4.01 10^3/uL (1.8-7.7); Neutrophils % 50.9 %; Nucleated Red Blood Cells % 0 %; Platelet Count 238 10^3/cmm (130-400); Red Blood Count 4.61 10^6/uL (4.1-5.3); Red Cell Distribution Width 13.2 % (12.1-15.1); White Blood Count 7.9 10^3/uL (4.0-10.0)
[2023-01-24 05:45] LABS: Anion Gap 13.7 (5-19); Blood Urea Nitrogen 11 mg/dL (8-23); Calcium 8.7 mg/dL (8.5-10.5); Carbon Dioxide 24 mmol/L (22-29); Chloride 109 mmol/L (98-107); Glomerular Filtration Rate 71.1 mL/min (90-130); Glucose 91 mg/dL (65-115); Osmolality Calculated 295 mOsm/kg (285-295); Potassium 3.7 mmol/L (3.5-5.1); Sodium 143 mmol/L (136-145)
[2023-01-24] MEDS: famotidine 20 mg Tablet PO (08:18)
[2023-01-24] MEDS: losartan 50 mg Tablet 25 MG PO (08:19)
[2023-01-24] MEDS: sennosides-docusate Tablet 1 TAB PO (08:19)
[2023-01-24] MEDS: gabapentin 300 mg Capsule PO (08:19)
--- NOTE | 2023-01-24 09:46 | PM.CONSULT ---
Providers/Reason For Consult Consulting Physician/Specialty*: Walter Leal M.D./General Surgery Reason for Consult*: Dysphagia for solids Attending Physician: Delon Melo MD Primary Care Provider: Corrina Mccallum NP History of Present Illness History of Present Illness Kendra Rushing is a 67 year old female who has had long-standing (>1 year) dysphagia for solids only. She says that breads, meats, and medications cause her the greatest difficulty, and reports both cervical and epigastric distress, as well as discomfort in her jaws/ears. She has seen ENT specialists for the ear pain, and they related this to pressure. Significant in her history is an anterior cervical fusion over 20 years ago, at which time an anterior plate was placed. She had no dysphagia however, for the ensuing 18 years or so. Review of Systems General: Reports: 10 or more systems reviewed and unremarkable except in HPI and below Const: Denies: fever(s), chills, change in appetite or change in weight Eyes: Denies: change in vision, blurry vision or yellow eyes ENMT: Reports: ear or mastoid pain (upon swallowing) Card: Denies: palpitations or irregular heart rhythm GI: Reports: dysphagia (solids); Denies: abdominal pain : Denies: flank pain, dysuria or urinary frequency Musc: Denies: neck pain Skin/Breast: Denies: rash or pruritus (Past history of butterfly facial rash ) Neuro: Denies: confusion or behavioral changes Medications/Allergies Home Medications Medication Instructions Recorded Confirmed Last Taken Type fluticasone propionate 50 1 spray intranasal DAILY 07/12/20 01/23/23 Unknown History mcg/actuation nasal spray,suspension (Flonase Allergy Relief) lactobacillus combination no.8 1 tab PO DAILY 07/12/20 01/23/23 Unknown History [Adult Probiotic] loratadine 10 mg tablet (Allergy 10 mg PO DAILY 07/12/20 01/23/23 Unknown History Relief (loratadine)) alpha gpc 1 cap PO DAILY 01/04/21 01/23/23 Unknown History magnesium oxide,aspartate,citr 400 mg PO DAILY 01/04/21 01/23/23 Unknown History (Triple Magnesium Complex) atenolol 50 mg tablet See Rx Instructions .Route 03/20/22 01/23/23 Unknown Rx .COMPLEX #135 tabs gabapentin 300 mg capsule 300 mg PO TID #270 caps 09/30/22 01/23/23 Unknown Rx cyanocobalamin-methylcobalamin 600 1 tab sublingual DAILY 11/07/22 01/23/23 Unknown History mcg-600 mcg sublingual tablet famotidine 20 mg tablet 20 mg PO DAILY 11/07/22 01/23/23 Unknown History losartan 25 mg tablet 25 mg PO DAILY 30 days #30 tabs 11/07/22 01/23/23 Unknown Rx miscellaneous medical supply 11/07/22 01/23/23 Unknown History furosemide 20 mg tablet (Lasix) 40 mg PO DAILY #60 tabs 12/17/22 01/23/23 Unknown Rx hydrochlorothiazide 25 mg tablet See Rx Instructions .Route 12/20/22 01/23/23 Unknown Rx .COMPLEX #180 tabs potassium chloride 20 mEq 40 meq PO DAILY #60 tabs 01/20/23 01/23/23 Unknown Rx tablet,extended release albuterol sulfate 90 mcg/actuation See Rx Instructions .Route 01/21/23 01/23/23 Unknown Rx aerosol inhaler .COMPLEX #8.5 grams Allergies Allergy/AdvReac Type Severity Reaction Status Date / Time nifedipine Allergy Intermediate algy-leg Verified 01/23/23 07:51 swelling acetaminophen Allergy unknown Verified 01/23/23 07:51 adhesive tape Allergy unknown Verified 01/23/23 07:51 codeine Allergy unknown Verified 01/23/23 07:51 [From Tylenol-Codeine] latex Allergy unknown Verified 01/23/23 07:51 Current Medications Generic Name Dose Route Start Last Admin Trade Name Danisq PRN Reason Stop Dose Admin Enoxaparin Sodium 40 mg 01/22/23 20:27 01/23/23 21:16 Enoxaparin 40 Mg/0.4 Ml Syringe SUBCUT 40 mg Q24H MESFIN Administration Famotidine 20 mg 01/23/23 09:00 01/24/23 08:18 Famotidine 20 Mg Tablet PO 20 mg DAILY MESFIN Administration Gabapentin 300 mg 01/22/23 21:00 01/24/23 08:19 Gabapentin 300 Mg Capsule PO 300 mg TID MESFIN Administration Sodium Chloride 1,000 mls @ 75 mls/hr 01/23/23 12:45 01/24/23 02:14 Sodium Chloride 0.9% IV 75 mls/hr .[id number] MESFIN Administration Losartan Potassium 25 mg 01/23/23 09:00 01/24/23 08:19 Losartan 50 Mg Tablet PO 25 mg DAILY MESFIN Administration Ondansetron HCl 4 mg 01/22/23 20:27 01/23/23 11:07 Ondansetron 2 Mg/Ml Sdv 2 Ml IVP 4 mg Q6H PRN Administration NAUSEA AND VOMITING Senna/Docusate Sodium 1 tab 01/23/23 09:00 01/24/23 08:19 Sennosides-Docusate Tablet PO 1 tab DAILY MESFIN Administration Additional Medication Information Clincal history of discoid lupus diagnosed in [facility] Acute PFSH: Medical History Essential hypertension Fixation hardware in spine Lupus Thoracic spondylosis Surgical History History of carpal tunnel surgery History of cataract extraction bilateral History of tonsillectomy and adenoidectomy Hx of appendectomy Hx of cervical spine surgery Hx of cholecystectomy Hx of knee surgery Hx of rotator cuff surgery Family History Brother CAD (coronary artery disease) CABG x 4 Mother CAD (coronary artery disease) hole in heart - pacemaker Grandmother CAD (coronary artery disease) hole in heart Grandfather Cancer Lung disease Father Dementia Stroke Denies family history of Diabetes Clotting disorder Chronic kidney disease (CKD) Suicide Anesthesia complication Bleeding disorder Social History Smoking and tobacco status: former smoker Alcohol intake: never Vitals/I&O/Wt Last Vital Signs Temp 98.2 F 01/24/23 05:03 Pulse 85 01/24/23 08:00 Resp 16 01/24/23 08:00 BP 147/82 01/24/23 08:19 Pulse Ox 95 01/24/23 08:00 O2 Del Method 01/24/23 08:00 01/23/23 01/24/23 01/24/23 22:59 06:59 14:59 Intake Total 480 / 2320 1715 / 4035 0 / 0 Output Total 300 / 300 Balance 480 / 1820 1715 / 3535 -300 / -300 Weight last 48 hrs Weight 216 lb 1.6 oz Weight 206 lb Weight 200 lb Physical Exam HENMT: COMMON NORMALS: normocephalic and hearing grossly normal bilaterally HEAD & SCALP: normocephalic Eye: COMMON NORMALS: Equal, round and reactive pupils present, EOMs intact bilaterally and no scleral icterus PUPIL: Yes Equal, round and reactive pupils present Neck/C-Spine: COMMON NORMALS: no lymphadenopathy and supple Resp: COMMON NORMALS: clear to auscultation bilaterally AUSCULTATION: clear to auscultation bilaterally Cardio: COMMON NORMALS: regular rate and regular rhythm RATE: regular rate RHYTHM: regular rhythm GI: COMMON NORMALS: Normal to inspection, nondistended, normoactive bowel sounds present, non-tender and no masses : COMMON NORMALS: Yes no CVA tenderness BLADDER/KIDNEY EXAM: Yes no CVA tenderness Back/Pelvis: COMMON NORMALS: no CVA tenderness Extremity: COMMON NORMALS: normal to inspection and full ROM Neuro: COMMON NORMALS: CN's II-XII intact bilaterally and no focal motor deficits Psych: COMMON NORMALS: mental status grossly normal and cooperative Data 01/24/23 05:04 01/24/23 05:04 A&P Assessment and plan (1) Dysphagia: Plan: EGD with biopsy on 01/24/23 Coding Level of Care Code Acute Code for Chg Fwd Diagnoses Dysphagia R13.10
[2023-01-24] MEDS: sodium chloride 0.9% 1,000 ML 30 ML IV (10:41)
--- NOTE | 2023-01-24 10:54 | ANES.PREANE2 ---
Pre-Anesthetic Assessment Height/Weight: Height 1.7 m Weight 98.021 kg Temp Pulse Resp BP Pulse Ox O2 Del Method 98.0 F 71 16 153/87 96 01/24/23 10:28 01/24/23 10:28 01/24/23 10:28 01/24/23 10:28 01/24/23 10:28 01/24/23 10:28 Preop Diagnosis: Dysphagia Operation Date: 01/24/23 10:15 Proposed Procedures p EGD(Not Applicable) - Walter Leal MD Was Beta Scarlet taken within 24 hours: Yes Was Clonidine taken within 24 hours: N/A Last intake: Intake Last Liquid Date 01/23/23 Last Liquid Time 16:00 Last Solid Date 01/23/23 Last Solid Time 16:00 Social No alcohol and No tobacco Exam alert, oriented x 3, clear to auscultation bilaterally and regular rate & rhythm Airway Submandibular: within normal limits Cervical ROM: Other Mallampati: Class I Comments: Comments: slightly limited extension History/ROS No significant history except as noted and No significant complaints Pulmonary Shortness of Breath CV/HEM Hypertension recent stress echo wnl. None reported Hepatic None reported GI Gastroesophageal Reflux Disease Metabolic None reported Musc/skel Lower Back Pain Neuropsych Anxiety Anesthetic Plan ASA status: 3 Anesthesia: Anesthesia Evaluation and MAC Risk of > 500 ml blood loss (7ml/kg in children): Yes, adequate IV access and fluids planned Medications/Allergies Home Medications Medication Instructions Recorded Confirmed Last Taken Type fluticasone propionate 50 1 spray intranasal DAILY 07/12/20 01/23/23 Unknown History mcg/actuation nasal spray,suspension (Flonase Allergy Relief) lactobacillus combination no.8 1 tab PO DAILY 07/12/20 01/23/23 Unknown History [Adult Probiotic] loratadine 10 mg tablet (Allergy 10 mg PO DAILY 07/12/20 01/23/23 Unknown History Relief (loratadine)) alpha gpc 1 cap PO DAILY 01/04/21 01/23/23 Unknown History magnesium oxide,aspartate,citr 400 mg PO DAILY 01/04/21 01/23/23 Unknown History (Triple Magnesium Complex) atenolol 50 mg tablet See Rx Instructions .Route 03/20/22 01/23/23 Unknown Rx .COMPLEX #135 tabs gabapentin 300 mg capsule 300 mg PO TID #270 caps 09/30/22 01/23/23 Unknown Rx cyanocobalamin-methylcobalamin 600 1 tab sublingual DAILY 11/07/22 01/23/23 Unknown History mcg-600 mcg sublingual tablet famotidine 20 mg tablet 20 mg PO DAILY 11/07/22 01/23/23 Unknown History losartan 25 mg tablet 25 mg PO DAILY 30 days #30 tabs 11/07/22 01/23/23 Unknown Rx miscellaneous medical supply 11/07/22 01/23/23 Unknown History furosemide 20 mg tablet (Lasix) 40 mg PO DAILY #60 tabs 12/17/22 01/23/23 Unknown Rx hydrochlorothiazide 25 mg tablet See Rx Instructions .Route 12/20/22 01/23/23 Unknown Rx .COMPLEX #180 tabs potassium chloride 20 mEq 40 meq PO DAILY #60 tabs 01/20/23 01/23/23 Unknown Rx tablet,extended release albuterol sulfate 90 mcg/actuation See Rx Instructions .Route 01/21/23 01/23/23 Unknown Rx aerosol inhaler .COMPLEX #8.5 grams Allergies Allergy/AdvReac Type Severity Reaction Status Date / Time nifedipine Allergy Intermediate algy-leg Verified 01/23/23 07:51 swelling acetaminophen Allergy unknown Verified 01/23/23 07:51 adhesive tape Allergy unknown Verified 01/23/23 07:51 codeine Allergy unknown Verified 01/23/23 07:51 [From Tylenol-Codeine] latex Allergy unknown Verified 01/23/23 07:51 Current Medications Generic Name Dose Route Start Last Admin Trade Name Freq PRN Reason Stop Dose Admin Enoxaparin Sodium 40 mg 01/22/23 20:27 01/23/23 21:16 Enoxaparin 40 Mg/0.4 Ml Syringe SUBCUT 40 mg Q24H MESFIN Administration Famotidine 20 mg 01/23/23 09:00 01/24/23 08:18 Famotidine 20 Mg Tablet PO 20 mg DAILY MESFIN Administration Gabapentin 300 mg 01/22/23 21:00 01/24/23 08:19 Gabapentin 300 Mg Capsule PO 300 mg TID MESFIN Administration Sodium Chloride 1,000 mls @ 75 mls/hr 01/23/23 12:45 01/24/23 02:14 Sodium Chloride 0.9% IV 75 mls/hr .[id number] MESFIN Administration Sodium Chloride 1,000 mls @ 30 mls/hr 01/24/23 10:30 01/24/23 10:41 Sodium Chloride 0.9% IV 01/25/23 10:29 30 mls/hr .Q24H MESFIN Administration Losartan Potassium 25 mg 01/23/23 09:00 01/24/23 08:19 Losartan 50 Mg Tablet PO 25 mg DAILY MESFIN Administration Ondansetron HCl 4 mg 01/22/23 20:27 01/23/23 11:07 Ondansetron 2 Mg/Ml Sdv 2 Ml IVP 4 mg Q6H PRN Administration NAUSEA AND VOMITING Senna/Docusate Sodium 1 tab 01/23/23 09:00 01/24/23 08:19 Sennosides-Docusate Tablet PO 1 tab DAILY MESFIN Administration Additional Medication Information Clincal history of discoid lupus diagnosed in [facility] Anesthesia Medical History Essential hypertension Fixation hardware in spine Lupus Thoracic spondylosis Surgical History History of carpal tunnel surgery History of cataract extraction bilateral History of tonsillectomy and adenoidectomy Hx of appendectomy Hx of cervical spine surgery Hx of cholecystectomy Hx of knee surgery Hx of rotator cuff surgery Family History Brother CAD (coronary artery disease) CABG x 4 Mother CAD (coronary artery disease) hole in heart - pacemaker Grandmother CAD (coronary artery disease) hole in heart Grandfather Cancer Lung disease Father Dementia Stroke Denies family history of Diabetes Clotting disorder Chronic kidney disease (CKD) Suicide Anesthesia complication Bleeding disorder Social History Smoking and tobacco status: former smoker Alcohol intake: never Data Anesthesia 01/24/23 05:04 01/24/23 05:04 Short CBC 01/22/23 01/24/23 Range/Units 16:16 05:04 WBC 9.4 7.9 (4.0-10.0) 10^3/uL Hgb 15.8 H 13.8 (11.5-15.3) g/dL Hct 46.6 40.9 (37.0-47.0) % MCV 88.6 88.7 (81-99) fl Plt Count 307 238 (130-400) 10^3/cmm Neut % (Auto) 62.5 50.9 % Neut # (Auto) 5.85 4.01 (1.8-7.7) 10^3/uL BMP 01/22/23 01/23/23 01/24/23 16:16 04:10 05:04 Sodium 140 142 143 Potassium 3.5 3.0 L 3.7 Chloride 97 L 105 109 H Carbon Dioxide 29 27 24 BUN 13 11 11 Creatinine 0.8 0.8 0.8 Glucose 127 H 91 91 Calcium 9.7 8.6 8.7 Cardiac Enzymes 01/22/23 01/22/23 01/23/23 Range/Units 20:38 22:30 04:10 Troponin T Baseline 7 (0-10) ng/L Troponin T 120 Minute 7.20 (0-10) ng/L Delta Troponin T 0.20 (0-10) ABS# Troponin T Hi Sens 6Hr 8.11 (0-10) ng/L Troponin T Hi Sens 6Hr Delta 0.91 (0-12) ng/L Liver Function 01/22/23 Range/Units 16:16 Total Bilirubin 0.3 (0.15-1.2) mg/dL AST 15 (0-32) U/L ALT 13 (0-33) U/L Alkaline Phosphatase 67 (35-105) U/L Albumin 4.2 (3.5-5.2) g/dL Urine 01/22/23 Range/Units 19:49 Urine Color Yellow (Yellow) Urine Appearance Clear (CLEAR) Urine pH 7 (5-7) Ur Specific [place] 1.010 (1.005-1.030) Urine Protein Neg (Negative) Urine Glucose (UA) Norm (Normal) Urine Ketones Negative (Negative) Urine Nitrate Negative (Negative) Urine Bilirubin Neg (Negative) Ur Leukocyte Esterase Negative (Negative) Coags 01/22/23 01/23/23 16:16 04:10 D-Dimer 0.48 C-Reactive Protein 3.0 Cardiac Studies: Echocardiogram 01/22/23 Sestamibi Stress Test (Cardiology) 12/18/22
[2023-01-24 11:42] LABS: Erythrocyte Sedimentation Rate 3 mm/hr (0-15)
--- NOTE | 2023-01-24 12:58 | ANE.PACU2 ---
Inpatient post-anesthesia follow up: Airway intact: Yes Vital signs: Temperature 97 F Pulse Rate 75 Respiratory Rate 16 Blood Pressure 167/108 Pulse Oximetry 94 Oxygen Delivery Me thod Nasal Cannula Oxygen Flow Rate 2 Fraction of Inspir ed Oxygen Hydration adequate: Yes Nausea and vomiting: No Pain level: 2 Mental status: Baseline
--- NOTE | 2023-01-24 14:27 | PM.DCS ---
Discharge Providers Date of Admission: 01/22/23 18:00 Date of Discharge: January 24, 2023 Attending Provider at Admission: Abilio Burgess MD Attending Provider at Discharge: Delon Melo MD Primary Care Provider: Corrina Mccallum NP Diagnoses at Discharge Discharge Diagnosis (1) Dysphagia: Status: Acute Reason for Visit Reason for Visit: balance issue/left side numb Hospital Course Hospital Course Kendra Rushing is a 67 year old female who is seen Dr. Rivas outpatient Presented with chief complaint of lower extremity weakness and bradycardia.? Patient is status post unremarkable MRI head unremarkable, her work-up has been unremarkable so far patient is stating that she has been experiencing chest pain which she is describing as heaviness which is no aggravating or relieving factors, she has no history of ME or CHF or bradycardia in the past.? She is on atenolol for her hypertension.? Her Lasix and potassium has been readjusted recently.? She carries history of hypertension.? Patient is stating that she could not get up because she felt her legs were so weak however there are no focal deficits on my examination, heart rate is below 60 with normal blood pressure, she is very fatigued and lethargic endorsing feeling cold. Her recent echo and MRI results are unremarkable I would not repeat at this point Hold atenolol watch overnight put pacemaker pads on Full code serial troponin and EKGs Patient was admitted to [facility] due to weakness, with bradycardia -EKG showed bradycardia, likely secondary to atenolol, which was discontinued, discontinue on discharge, she was monitored as inpatient, remained normotensive, asymptomatic, discharged with event monitor, follow-up with cardiology for results, spoke to Dr. Rivas agreed to follow event monitor -In terms of patient's dysphagia, she had a EGD which showed a hernia and gastritis, follow-up with general surgery for pathology results -Her lupus antibody was positive, follow-up with rheumatology as outpatient, were hoping that she can get a sooner appointment -Some of her symptoms seem like myasthenia gravis, I have ordered antibody tests, follow-up with neurology as outpatient -If any worsening symptomatology come back to the emergency room Physical Exam Const: COMMON NORMALS: no acute distress and patient oriented x3 Resp: COMMON NORMALS: normal respiratory effort, No retractions, No use of accessory muscles and clear to auscultation bilaterally AUSCULTATION: clear to auscultation bilaterally Cardio: COMMON NORMALS: regular rate, regular rhythm, S1 normal heart sound present and S2 normal heart sound present RATE: regular rate RHYTHM: regular rhythm HEART SOUNDS: S1 normal heart sound present and S2 normal heart sound present GI: COMMON NORMALS: Normal to inspection, nondistended, normoactive bowel sounds present and non-tender Extremity: COMMON NORMALS: no pedal edema Neuro: COMMON NORMALS: patient oriented x3 Psych: COMMON NORMALS: mental status grossly normal Discharge Data Studies Completed and Pending Completed Studies During Hospitalization Category Date Time Status CT head wo con* [id number] Stat Cat Scan 01/22/23 16:17 Completed XR chest 1V portable [id number] Routine Exams 01/23/23 12:45 Completed MR head wo con* [id number] Routine MRI 01/23/23 12:41 Completed CV. echo complete* [id number] Routine Ultrasound 01/22/23 20:27 Completed Pending at discharge Category Date Time Status MIKA Profile Rheumatology Stat Lab 01/24/23 13:50 Received Acetylcholine Receptor Binding Routine Lab 01/24/23 13:50 Received Musk Antibody Test Routine Lab 01/24/23 13:50 Received Striated Muscle AB w/Titer Stat Lab 01/24/23 13:50 Received Tick Panel Stat Lab 01/24/23 13:50 Received Pathology: Surgical [PTH] Routine Pth 01/24/23 11:20 Received Radiology Impressions Head CT 01/22/23 16:17 IMPRESSION: 1. Right maxillary sinus disease 2. No acute intracranial finding. Head MRI 01/23/23 12:41 IMPRESSION: 1. No evidence of restricted diffusion to suggest acute ischemia. 2. Mild small vessel changes with mild parenchymal volume loss. 3. RIGHT maxillary sinusitis. 4. Mastoid air cells are well aerated. 5. No hemosiderin and on susceptibly weighted images. Chest X-Ray 01/23/23 12:45 IMPRESSION: No acute findings. Stable surgical hardware in the cervical spine Laboratory Results WBC 7.9 10^3/uL (4.0-10.0) 01/24/23 05:04 RBC 4.61 10^6/uL (4.1-5.3) 01/24/23 05:04 Hgb 13.8 g/dL (11.5-15.3) 01/24/23 05:04 Hct 40.9 % (37.0-47.0) 01/24/23 05:04 MCV 88.7 fl (81-99) 01/24/23 05:04 MCH 29.9 pg (28.0-34.0) 01/24/23 05:04 MCHC 33.7 g/dL (30.0-36.0) 01/24/23 05:04 RDW 13.2 % (12.1-15.1) 01/24/23 05:04 Plt Count 238 10^3/cmm (130-400) 01/24/23 05:04 MPV 10.3 fL (7.4-10.4) 01/24/23 05:04 Neut % (Auto) 50.9 % 01/24/23 05:04 Lymph % (Auto) 37.1 % 01/24/23 05:04 [place] % (Auto) 8.0 % 01/24/23 05:04 Eos % (Auto) 2.3 % 01/24/23 05:04 Baso % (Auto) 1.1 % 01/24/23 05:04 Neut # (Auto) 4.01 10^3/uL (1.8-7.7) 01/24/23 05:04 Lymph # (Auto) 2.9 10^3/uL (0.8-4.8) 01/24/23 05:04 [place] # (Auto) 0.6 10^3/uL (0.2-0.9) 01/24/23 05:04 Eos # (Auto) 0.2 10^3/uL (0.0-0.8) 01/24/23 05:04 Baso # (Auto) 0.1 10^3/uL (0.0-0.1) 01/24/23 05:04 Nucleated RBC % (auto) 0 % 01/24/23 05:04 Nucleated RBCs # 0.0 /100WBC 01/24/23 05:04 ESR 3 mm/hr (0-15) 01/24/23 05:04 D-Dimer 0.48 ug/mIFEU (0-0.59) 01/22/23 16:16 Sodium 143 mmol/L (136-145) 01/24/23 05:04 Potassium 3.7 mmol/L (3.5-5.1) 01/24/23 05:04 Chloride 109 mmol/L (98-107) H 01/24/23 05:04 Carbon Dioxide 24 mmol/L (22-29) 01/24/23 05:04 Anion Gap 13.7 (5-19) 01/24/23 05:04 BUN 11 mg/dL (8-23) 01/24/23 05:04 Creatinine 0.8 mg/dL (0.5-0.9) 01/24/23 05:04 GFR Calculation 71.1 mL/min (90-130) L 01/24/23 05:04 Glucose 91 mg/dL (65-115) 01/24/23 05:04 POC Glucose 151 mg/dL (70-110) H 01/22/23 16:10 Calculated Osmolality 295 mOsm/kg (285-295) 01/24/23 05:04 Calcium 8.7 mg/dL (8.5-10.5) 01/24/23 05:04 Phosphorus 3.2 mg/dL (2.5-4.5) 01/23/23 04:10 Magnesium 2.0 mg/dL (1.7-2.3) 01/23/23 04:10 Total Bilirubin 0.3 mg/dL (0.15-1.2) 01/22/23 16:16 AST 15 U/L (0-32) 01/22/23 16:16 ALT 13 U/L (0-33) 01/22/23 16:16 Alkaline Phosphatase 67 U/L (35-105) 01/22/23 16:16 Troponin T Baseline 7 ng/L (0-10) 01/22/23 20:38 Troponin T 120 Minute 7.20 ng/L (0-10) 01/22/23 22:30 Delta Troponin T 0.20 ABS# (0-10) 01/22/23 22:30 Troponin T Hi Sens 6Hr 8.11 ng/L (0-10) 01/23/23 04:10 Troponin T Hi Sens 6Hr Delta 0.91 ng/L (0-12) 01/23/23 04:10 C-Reactive Protein 3.0 mg/L (0.0-4.9) 01/23/23 04:10 Total Protein 7.0 g/dL (6.6-8.7) 01/22/23 16:16 Albumin 4.2 g/dL (3.5-5.2) 01/22/23 16:16 Globulin 2.8 g/dL (1.3-4.6) 01/22/23 16:16 TSH 2.97 uIU/mL (0.27-4.20) 01/22/23 20:38 Urine Color Yellow (Yellow) 01/22/23 19:49 Urine Appearance Clear (CLEAR) 01/22/23 19:49 Urine pH 7 (5-7) 01/22/23 19:49 Ur Specific [place] 1.010 (1.005-1.030) 01/22/23 19:49 Urine Protein Neg (Negative) 01/22/23 19:49 Urine Glucose (UA) Norm (Normal) 01/22/23 19:49 Urine Ketones Negative (Negative) 01/22/23 19:49 Urine Blood Neg (Negative) 01/22/23 19:49 Urine Nitrate Negative (Negative) 01/22/23 19:49 Urine Bilirubin Neg (Negative) 01/22/23 19:49 Urine Urobilinogen Norm mg/dL (Negative) 01/22/23 19:49 Ur Leukocyte Esterase Negative (Negative) 01/22/23 19:49 Vitals Last Vital Signs Temp 97 F L 01/24/23 11:21 Pulse 71 01/24/23 13:00 Resp 18 01/24/23 13:00 BP 123/75 01/24/23 13:00 Pulse Ox 96 01/24/23 13:00 O2 Del Method 01/24/23 13:00 O2 Flow Rate 2 01/24/23 11:43 Discharge Plan Discharge Patient Disposition: Home Condition: Stable Prescriptions: Continued fluticasone propionate [Flonase Allergy Relief] 50 mcg/actuation spray,suspension 1 spray INTRANASAL DAILY Rx Instructions: administer into each nostril lactobacillus combination no.8 1 tab PO DAILY loratadine [Allergy Relief (loratadine)] 10 mg tablet 10 mg PO DAILY alpha gpc capsule 1 cap PO DAILY Triple Magnesium Complex 400 mg magnesium capsule 400 mg PO DAILY famotidine 20 mg tablet 20 mg PO DAILY cyanocobalamin-methylcobalamin 600-600 mcg tablet, sublingual 1 tab sublingual DAILY (DME) miscellaneous medical supply Misc See Rx Instructions .Route Rx Instructions: As directed losartan 25 mg tablet 25 mg PO DAILY 30 Days Qty: 30 5RF gabapentin 300 mg capsule 300 mg PO TID Qty: 270 3RF potassium chloride 20 mEq tablet extended release 40 meq PO DAILY Qty: 60 5RF albuterol sulfate 90 mcg/actuation HFA aerosol inhaler See Rx Instructions .ROUTE .COMPLEX Qty: 8.5 2RF Dose Instruction: INHALE TWO (2) PUFFS BY MOUTH EVERY 4 HOURS NEEDED FOR SHORTNESS OF BREATH OR WHEEZING Rx Instructions: INHALE TWO (2) PUFFS BY MOUTH EVERY 4 HOURS NEEDED FOR SHORTNESS OF BREATH OR WHEEZING Changed furosemide [Lasix] 20 mg tablet 20 mg PO DAILY Qty: 60 5RF hydrochlorothiazide 25 mg tablet See Rx Instructions .ROUTE .COMPLEX Qty: 180 0RF Dose Instruction: TAKE ONE TABLET BY MOUTH TWICE DAILY Rx Instructions: TAKE ONE TABLET BY DAILY Discontinued atenolol 50 mg tablet See Rx Instructions .ROUTE .COMPLEX Qty: 135 3RF Dose Instruction: TAKE ONE (1) AND ONE HALF (1/2) TABLET BY MOUTH ONCE DAILY Rx Instructions: TAKE ONE (1) AND ONE HALF (1/2) TABLET BY MOUTH ONCE DAILY Discharge Orders: Discharge Order (Routine); Ordered 01/24/23 Ordered By: Delon Jansen Ambulatory Orders: MCT/Event Monitor 21 Days (Routine) Timeframe: 3 Weeks Facility: [facility] - Location: Radiology Ordered By: Abilio Burgess DME: Trey (Order) Location: None Selected Ordered By: Abilio Burgess Referrals: Fidelina James MD [Physician] - 1 week Renita Ruggiero MD [Physician] - 4-7 days (myasthenia gravis) Jimmy Uribe DO [Physician] - 2 weeks (gastritis) Juan Rivas MD [Physician] - 2 weeks Corrina Mccallum NP [Primary Care Provider] - 01/29/23 11:20 am Discharge Diet: Regular Discharge Activity: Resume usual activity Patient Instructions: GI Discharge Instructions, Opioid Safety Discharge Attestations Time Spent in Discharge Care*: greater than 30 min Quality Metrics Clinical Quality Measures [ No reported AMI, CVA or VTE this stay] Coding Level of Care Code 23401 Total time (in minutes) for Discharge: 50 Diagnoses Dysphagia R13.10
[2023-01-27 11:25] LABS: COMPLEMENT COMPONENT C3C 118 mg/dL (83-193); COMPLEMENT COMPONENT C4C 33 mg/dL (15-57)
[2023-01-27 11:35] LABS: Lyme AB Screen <0.90 index
[2023-01-27 13:10] LABS: COMPLEMENT, TOTAL (CH50) 50 U/mL (31-60)
[2023-01-27 17:34] LABS: E. Chaffeensis AB IGG <1:64; E. Chaffeensis AB IGM <1:20
[2023-01-28 13:09] LABS: CENTROMERE B ANTIBODY <1.0 NEG AI (<1.0 NEG); JO-1 ANTIBODY <1.0 NEG AI (<1.0 NEG); RNP ANTIBODY <1.0 NEG AI (<1.0 NEG); SCL-70 ANTIBODY <1.0 NEG AI (<1.0 NEG); SJOGREN'S ANTIBODY (SS-A) <1.0 NEG AI (<1.0 NEG); SM ANTIBODY <1.0 NEG AI (<1.0 NEG); SS-B <1.0 NEG AI (<1.0 NEG)
[2023-01-28 18:44] LABS: THYROID PEROXIDASE ANTIBODIES <1 IU/mL (<9)
[2023-01-29 14:40] LABS: DNA AB (DS) CRITHIDIA,IFA NEGATIVE (NEGATIVE)
[2023-01-30 07:59] LABS: ANA SCREEN, IFA POSITIVE (NEGATIVE)
[2023-01-30 08:10] LABS: ANA PATTERN Nuclear, Speckled; ANA TITER 1:40 titer
[2023-01-30 18:00] LABS: RMSF IGG NOT DETECTED; RMSF IGM NOT DETECTED
[2023-02-04 15:41] LABS: Striated Muscle AB Screen NEGATIVE (NEGATIVE)
[2023-02-08 20:05] LABS: Acetylcholine Receptor Binding <0.30 nmol/L
== END 2023-01-24 15:24 | disposition home or self-care (01) ==
LOC: ER 16:29 → CSU 18:23
PROVIDERS: Surgery; Admitting Provider Internal Medicine; Emergency Provider Family Medicine; PCP Nurse Practitioner Family; Visit Provider Family Medicine
PROC: 0DJ08ZZ Inspection of Upper Intestinal Tract, Via Natural or Artificial Opening Endoscopic (ICD-10-PCS; CPT 43235; principal; 2023-01-24 10:15)
DX: R13.10 Dysphagia, unspecified (principal); R60.9 Edema, unspecified; R00.1 Bradycardia, unspecified; R53.83 Other fatigue; R76.8 Other specified abnormal immunological findings in serum; M32.9 Systemic lupus erythematosus, unspecified; R26.81 Unsteadiness on feet; R42 Dizziness and giddiness; I10 Essential (primary) hypertension; K21.9 Gastro-esophageal reflux disease without esophagitis; Z87.891 Personal history of nicotine dependence; K29.50 Unspecified chronic gastritis without bleeding; B96.81 Helicobacter pylori [H. pylori] as the cause of diseases classified elsewhere
CPT/HCPCS: 36415; 36416; 70450; 70551; 71045; 80048; 80053; 81003; 82962; 83519; 83735; 84100; 84443; 84484; 85025; 85378; 85651; 86140; 86160; 86162; 86235; 86255; 86376; 86618; 86666; 86757; 88305; 88342; 92610; 93005; 93306; 96361; 96372; 96374; 96376; 97110; 97161; 99285; G0378; J1650; J2405; J2704; J7030

== ENCOUNTER → 2023-01-27 14:22 | Outpatient (BNVA) | payer BC, MEDICARE, SELFPAY | PROVIDERS: PCP Nurse Practitioner Family; Visit Provider Specialist | DX: G62.9 Polyneuropathy, unspecified (principal); H92.02 Otalgia, left ear; Z98.1 Arthrodesis status; R06.02 Shortness of breath; R26.89 Other abnormalities of gait and mobility; G43.709 Chronic migraine without aura, not intractable, without status migrainosus | CPT/HCPCS: 96116; 99205 ==

== ENCOUNTER → 2023-01-29 13:34 | Outpatient (BNVA) | payer BC, MEDICARE, SELFPAY | PROVIDERS: PCP Nurse Practitioner Family; Visit Provider Nurse Practitioner Family | DX: R30.0 Dysuria (principal); E11.40 Type 2 diabetes mellitus with diabetic neuropathy, unspecified; R29.818 Other symptoms and signs involving the nervous system; R76.8 Other specified abnormal immunological findings in serum; Z79.899 Other long term (current) drug therapy; M62.81 Muscle weakness (generalized) | CPT/HCPCS: 81000; 81003; 82085; 82550; 82607; 82746; 85651 ==

== ENCOUNTER → 2023-01-30 16:55 | Outpatient (BNVA) | payer BC, MEDICARE, SELFPAY | PROVIDERS: PCP Nurse Practitioner Family; Visit Provider Nurse Practitioner Family | DX: R30.0 Dysuria (principal); E11.40 Type 2 diabetes mellitus with diabetic neuropathy, unspecified; R29.818 Other symptoms and signs involving the nervous system; R76.8 Other specified abnormal immunological findings in serum; Z79.899 Other long term (current) drug therapy | CPT/HCPCS: 87086 ==

== ENCOUNTER 2023-02-11 06:00 | Outpatient (RCR) | payer BC, MEDICARE, SELFPAY | END 2023-03-09 23:59 | disposition home or self-care (01) | LOC: GPT 06:00 | PROVIDERS: Visit Provider Specialist | DX: R53.1 Weakness (principal) | CPT/HCPCS: 97110; 97112; 97162; 97530 ==

== ENCOUNTER → 2023-02-19 15:18 | Outpatient (BNVA) | payer BC, MEDICARE, SELFPAY | PROVIDERS: PCP Nurse Practitioner Family; Visit Provider Surgery | DX: K29.70 Gastritis, unspecified, without bleeding (principal); A04.8 Other specified bacterial intestinal infections | CPT/HCPCS: 99203 ==

== ENCOUNTER 2023-03-10 06:00 | Outpatient (RCR) | payer BC, MEDICARE, SELFPAY | END 2023-04-09 23:59 | disposition home or self-care (01) | LOC: GPT 06:00 | PROVIDERS: PCP Nurse Practitioner Family; Visit Provider Specialist | DX: R53.1 Weakness (principal) | CPT/HCPCS: 97110; 97112; 97140; 97164; 97530; 97535 ==

== ENCOUNTER → 2023-03-26 12:03 | Outpatient (BNVA) | payer BC, MEDICARE, SELFPAY | PROVIDERS: PCP Nurse Practitioner Family; Visit Provider Surgery | DX: A04.8 Other specified bacterial intestinal infections (principal) | CPT/HCPCS: 87338 ==

== ENCOUNTER → 2023-04-09 11:01 | Outpatient (BNVA) | payer BC, MEDICARE, SELFPAY | PROVIDERS: PCP Nurse Practitioner Family; Visit Provider Internal Medicine Rheumatology | DX: Z79.899 Other long term (current) drug therapy (principal); Z11.59 Encounter for screening for other viral diseases; M45.6 Ankylosing spondylitis lumbar region; M19.042 Primary osteoarthritis, left hand; M19.041 Primary osteoarthritis, right hand; L71.9 Rosacea, unspecified; R76.8 Other specified abnormal immunological findings in serum | CPT/HCPCS: 36415; 73130; 73630; 85651; 86140; 86480; 86704; 86803; 86812; 87340; 99204 ==

== ENCOUNTER 2023-04-10 06:00 | Outpatient (RCR) | payer BC, MEDICARE, SELFPAY | END 2023-05-09 23:59 | disposition home or self-care (01) | LOC: GPT 06:00 | PROVIDERS: PCP Nurse Practitioner Family; Visit Provider Specialist | DX: R53.1 Weakness (principal) | CPT/HCPCS: 97110; 97112; 97140; 97530; 97535 ==

== ENCOUNTER → 2023-04-29 17:45 | Outpatient (BNVA) | payer BC, MEDICARE, SELFPAY | PROVIDERS: PCP Nurse Practitioner Family; Visit Provider Surgery | DX: R14.0 Abdominal distension (gaseous) (principal) | CPT/HCPCS: 99212 ==

== ENCOUNTER → 2023-05-06 11:04 | Outpatient (BNVA) | payer BC, MEDICARE, SELFPAY | PROVIDERS: PCP Nurse Practitioner Family; Visit Provider Internal Medicine Cardiovascular Disease | DX: R07.9 Chest pain, unspecified (principal); R06.02 Shortness of breath | CPT/HCPCS: 36415; 80048; 83880; 93005 ==

== ENCOUNTER 2023-05-10 06:00 | Outpatient (RCR) | payer MEDICARE, SELFPAY | END 2023-06-09 23:59 | disposition home or self-care (01) | LOC: GPT 06:00 | PROVIDERS: PCP Nurse Practitioner Family; Visit Provider Specialist | DX: M62.81 Muscle weakness (generalized) (principal) | CPT/HCPCS: 97110; 97112; 97164 ==

== ENCOUNTER 2023-05-28 20:00 | Outpatient (CLI) | payer MEDICARE, SELFPAY | END 2023-05-28 20:01 | disposition home or self-care (01) | LOC: SLEEP 05-29 06:16 | PROVIDERS: PCP Nurse Practitioner Family; Visit Provider Specialist | DX: G47.10 Hypersomnia, unspecified (principal) | CPT/HCPCS: 95810 ==

== ENCOUNTER → 2023-06-10 16:15 | Outpatient (BNVA) | payer MEDICARE, SELFPAY | PROVIDERS: PCP Nurse Practitioner Family; Visit Provider Nurse Practitioner Family | DX: R05.9 Cough, unspecified (principal); R06.02 Shortness of breath | CPT/HCPCS: 83880 ==

== ENCOUNTER → 2023-06-11 10:08 | Outpatient (BNVA) | payer MEDICARE, SELFPAY | PROVIDERS: PCP Nurse Practitioner Family; Visit Provider Specialist | DX: G47.33 Obstructive sleep apnea (adult) (pediatric) (principal); G43.711 Chronic migraine without aura, intractable, with status migrainosus; G47.10 Hypersomnia, unspecified; I48.91 Unspecified atrial fibrillation; G62.9 Polyneuropathy, unspecified; R26.9 Unspecified abnormalities of gait and mobility; Z79.01 Long term (current) use of anticoagulants; R09.02 Hypoxemia; E66.3 Overweight; Z68.31 Body mass index [BMI] 31.0-31.9, adult | CPT/HCPCS: 99214 ==

== ENCOUNTER 2023-06-12 10:17 | Outpatient (RCR) | payer MEDICARE, SELFPAY | END 2023-07-10 23:59 | disposition home or self-care (01) | LOC: GPT 10:17 | PROVIDERS: PCP Nurse Practitioner Family; Visit Provider Specialist | DX: R53.1 Weakness (principal) | CPT/HCPCS: 97110; 97112; 97530 ==

== ENCOUNTER → 2023-07-08 15:40 | Outpatient (BNVA) | payer MEDICARE, SELFPAY | PROVIDERS: PCP Nurse Practitioner Family; Visit Provider Internal Medicine Cardiovascular Disease | DX: R07.9 Chest pain, unspecified (principal); I48.91 Unspecified atrial fibrillation; G62.9 Polyneuropathy, unspecified; G47.33 Obstructive sleep apnea (adult) (pediatric); Z79.01 Long term (current) use of anticoagulants; Z86.73 Personal history of transient ischemic attack (TIA), and cerebral infarction without residual deficits; I11.0 Hypertensive heart disease with heart failure; I50.31 Acute diastolic (congestive) heart failure | CPT/HCPCS: 36415; 80048; 83880; 93005; 99214 ==

== ENCOUNTER 2023-07-11 06:00 | Outpatient (RCR) | payer MEDICARE, SELFPAY | END 2023-08-09 23:59 | disposition home or self-care (01) | LOC: GPT 06:00 | PROVIDERS: PCP Nurse Practitioner Family; Visit Provider Specialist | DX: M62.81 Muscle weakness (generalized) (principal) | CPT/HCPCS: 97110; 97112; 97164; 97530 ==

== ENCOUNTER 2023-08-19 20:00 | Outpatient (CLI) | payer MEDICARE, SELFPAY | END 2023-08-19 20:01 | disposition home or self-care (01) | LOC: SLEEP 08-20 04:56 | PROVIDERS: PCP Nurse Practitioner Family; Visit Provider Specialist | DX: G47.33 Obstructive sleep apnea (adult) (pediatric) (principal) | CPT/HCPCS: 95811 ==

== ENCOUNTER → 2023-09-10 11:51 | Outpatient (BNVA) | payer MEDICARE, SELFPAY | PROVIDERS: PCP Nurse Practitioner Family; Referring Provider Specialist; Visit Provider Specialist | DX: G47.33 Obstructive sleep apnea (adult) (pediatric) (principal); G43.711 Chronic migraine without aura, intractable, with status migrainosus; I10 Essential (primary) hypertension | CPT/HCPCS: 99214 ==

== ENCOUNTER → 2023-10-31 09:21 | Outpatient (BNVA) | payer MEDICARE, SELFPAY | PROVIDERS: PCP Nurse Practitioner Family; Visit Provider Internal Medicine Rheumatology | DX: M32.9 Systemic lupus erythematosus, unspecified (principal); Z79.899 Other long term (current) drug therapy | CPT/HCPCS: 80076; 82565; 85025; 86140 ==

== ENCOUNTER → 2024-01-14 10:18 | Outpatient (BNVA) | payer MEDICARE, SELFPAY | PROVIDERS: Visit Provider Specialist | DX: R29.90 Unspecified symptoms and signs involving the nervous system (principal); G43.711 Chronic migraine without aura, intractable, with status migrainosus; G25.81 Restless legs syndrome; G60.3 Idiopathic progressive neuropathy; M15.1 Heberden's nodes (with arthropathy); G47.33 Obstructive sleep apnea (adult) (pediatric) | CPT/HCPCS: 99214 ==

== ENCOUNTER → 2024-01-19 15:50 | Outpatient (BNVA) | payer MEDICARE, SELFPAY | PROVIDERS: PCP Nurse Practitioner Family; Visit Provider Internal Medicine Cardiovascular Disease | DX: R06.02 Shortness of breath (principal); I48.91 Unspecified atrial fibrillation; I10 Essential (primary) hypertension | CPT/HCPCS: 36415; 80048; 83880; 99214 ==

== ENCOUNTER → 2024-02-05 08:57 | Outpatient (BNVA) | payer MEDICARE, SELFPAY | PROVIDERS: PCP Nurse Practitioner Family; Visit Provider Specialist | DX: G60.3 Idiopathic progressive neuropathy (principal); R26.9 Unspecified abnormalities of gait and mobility | CPT/HCPCS: 95909; 95910 ==

== ENCOUNTER → 2024-03-23 09:16 | Outpatient (BNVA) | payer MEDICARE, SELFPAY | PROVIDERS: PCP Nurse Practitioner Family; Visit Provider Nurse Practitioner Family | DX: R73.09 Other abnormal glucose (principal) | CPT/HCPCS: 83036 ==

== ENCOUNTER → 2024-03-29 14:00 | Outpatient (BNVA) | payer MEDICARE, SELFPAY | PROVIDERS: PCP Nurse Practitioner Family; Visit Provider Nurse Practitioner Family | DX: L03.90 Cellulitis, unspecified (principal) | CPT/HCPCS: 87070 ==

== ENCOUNTER → 2024-05-28 09:27 | Outpatient (BNVA) | payer MEDICARE, SELFPAY | PROVIDERS: PCP Nurse Practitioner Family; Visit Provider Specialist | DX: R20.0 Anesthesia of skin (principal); G43.711 Chronic migraine without aura, intractable, with status migrainosus; G60.3 Idiopathic progressive neuropathy; R29.90 Unspecified symptoms and signs involving the nervous system; W19.XXXA Unspecified fall, initial encounter | CPT/HCPCS: 99214; 99215 ==

== ENCOUNTER 2024-06-01 16:18 | Outpatient (CLI) | payer MEDICARE, SELFPAY ==
--- NOTE | 2024-06-01 16:45 | CTR_ITS ---
PROCEDURE INFORMATION: Exam: CT Head Without And With Contrast Exam date and time: 06/01/2024 5:32 PM Age: 68 years old Clinical indication: Injury or trauma; Fall; Concussion/head injury; Without loss of consciousness; Injury details: Fell backwards out of shower and hit forehead on towel rack and posterior head on floor. Left eye blurriness, difficulty with balance 7-16-24; Additional info: R20.0 - anesthesia of skin, stat TECHNIQUE: Imaging protocol: Computed tomography of the head without and with contrast. Radiation optimization: All CT scans at this facility use at least one of these dose optimization techniques: automated exposure control; mA and/or kV adjustment per patient size (includes targeted exams where dose is matched to clinical indication); or iterative reconstruction. Contrast material: OMNIPAQUE 350; Contrast volume: 100 ml; Contrast route: INTRAVENOUS (IV); COMPARISON: MR head wo con* [id number] 01/23/2023 1:12 PM RADIATION DOSE METRICS: Total DLP (mGy-cm): 2110.49 FINDINGS: Brain: No acute intracranial hemorrhage. No confluent lobar infarct. No mass effect. No abnormal parenchymal, leptomeningeal or dural enhancement. Cerebral ventricles: The ventricles and sulci are normal in size and shape for the patient's stated age. Paranasal sinuses: Fluid level in the right maxillary sinus. Mastoid air cells: Visualized mastoid air cells are well aerated. Bones: No acute calvarial fracture. Soft tissues: Visualized soft tissues are unremarkable. CT/CT head wo/w con [id number] IMPRESSION: No acute intracranial abnormality. If symptoms persist, consider further evaluation with MRI, if MRI is clinically safe to obtain.
[2024-06-01 17:30] LABS: Blood Urea Nitrogen 17 mg/dL (8-23); Glomerular Filtration Rate 70.9 mL/min (90-130)
[2024-06-01] MEDS: iohexol 350 mg/mL 500 mL Btl (per mL) IV (17:45)
== END 2024-06-01 16:19 | disposition home or self-care (01) ==
LOC: RAD 16:20
PROVIDERS: PCP Nurse Practitioner Family; Visit Provider Specialist
DX: R20.0 Anesthesia of skin (principal); G43.711 Chronic migraine without aura, intractable, with status migrainosus; G60.3 Idiopathic progressive neuropathy
CPT/HCPCS: 70470; 82565; 84520; Q9967

== ENCOUNTER → 2024-06-15 14:10 | Outpatient (BNVA) | payer MEDICARE, SELFPAY | PROVIDERS: PCP Nurse Practitioner Family; Visit Provider Internal Medicine Rheumatology | DX: M19.041 Primary osteoarthritis, right hand (principal); M19.042 Primary osteoarthritis, left hand; R76.8 Other specified abnormal immunological findings in serum; M06.041 Rheumatoid arthritis without rheumatoid factor, right hand; M06.042 Rheumatoid arthritis without rheumatoid factor, left hand; Z79.899 Other long term (current) drug therapy; L71.9 Rosacea, unspecified; M76.61 Achilles tendinitis, right leg; M76.62 Achilles tendinitis, left leg | CPT/HCPCS: 72100; 72170; 99214 ==

== ENCOUNTER → 2024-06-28 10:08 | Outpatient (BNVA) | payer MEDICARE, SELFPAY | PROVIDERS: PCP Nurse Practitioner Family; Visit Provider Nurse Practitioner Family | DX: I10 Essential (primary) hypertension (principal); F41.9 Anxiety disorder, unspecified; R73.09 Other abnormal glucose | CPT/HCPCS: 80053; 80061; 83036 ==

== ENCOUNTER → 2024-08-31 14:30 | Outpatient (BNVA) | payer MEDICARE, SELFPAY | PROVIDERS: PCP Nurse Practitioner Family; Visit Provider Specialist | DX: R29.90 Unspecified symptoms and signs involving the nervous system (principal); G43.711 Chronic migraine without aura, intractable, with status migrainosus; R20.0 Anesthesia of skin; Z63.0 Problems in relationship with spouse or partner | CPT/HCPCS: 99214 ==

== ENCOUNTER → 2024-11-24 10:24 | Outpatient (BNVA) | payer MEDICARE, SELFPAY | PROVIDERS: PCP Nurse Practitioner Family; Visit Provider Internal Medicine Rheumatology | DX: M89.8X2 Other specified disorders of bone, upper arm (principal); W19.XXXA Unspecified fall, initial encounter; J32.9 Chronic sinusitis, unspecified; M06.041 Rheumatoid arthritis without rheumatoid factor, right hand; M06.042 Rheumatoid arthritis without rheumatoid factor, left hand; Z79.899 Other long term (current) drug therapy; M19.041 Primary osteoarthritis, right hand; M19.042 Primary osteoarthritis, left hand; R76.8 Other specified abnormal immunological findings in serum; L71.9 Rosacea, unspecified | CPT/HCPCS: 36415; 73060; 80076; 82565; 85025; 85651; 86140; 99215 ==

== ENCOUNTER → 2025-03-09 09:40 | Outpatient (BNVA) | payer MEDICARE, SELFPAY | PROVIDERS: PCP Nurse Practitioner Family; Visit Provider Internal Medicine Rheumatology | DX: Z79.899 Other long term (current) drug therapy (principal); M19.041 Primary osteoarthritis, right hand; M19.042 Primary osteoarthritis, left hand; R76.8 Other specified abnormal immunological findings in serum; L71.9 Rosacea, unspecified; M06.041 Rheumatoid arthritis without rheumatoid factor, right hand; M06.042 Rheumatoid arthritis without rheumatoid factor, left hand | CPT/HCPCS: 36415; 80076; 82565; 85025; 85651; 86140; 99214 ==

== ENCOUNTER → 2025-03-29 10:52 | Outpatient (BNVA) | payer MEDICARE, SELFPAY | PROVIDERS: PCP Nurse Practitioner Family; Visit Provider Specialist | DX: G43.711 Chronic migraine without aura, intractable, with status migrainosus (principal); G47.33 Obstructive sleep apnea (adult) (pediatric); R20.0 Anesthesia of skin | CPT/HCPCS: 99214 ==

== ENCOUNTER → 2025-04-13 13:00 | Outpatient (BNVA) | payer MEDICARE, SELFPAY | PROVIDERS: PCP Nurse Practitioner Family; Visit Provider Nurse Practitioner Family | DX: E11.9 Type 2 diabetes mellitus without complications (principal); M79.606 Pain in leg, unspecified | CPT/HCPCS: 80053; 82043; 83036 ==

== ENCOUNTER → 2025-05-19 14:08 | Outpatient (BNVA) | payer MEDICARE, SELFPAY | PROVIDERS: PCP Nurse Practitioner Family; Visit Provider Nurse Practitioner Family | DX: L30.4 Erythema intertrigo (principal); L24.9 Irritant contact dermatitis, unspecified cause; L72.0 Epidermal cyst; L81.4 Other melanin hyperpigmentation; L57.8 Other skin changes due to chronic exposure to nonionizing radiation; X32.XXXA Exposure to sunlight, initial encounter; L57.0 Actinic keratosis; L91.8 Other hypertrophic disorders of the skin; R20.9 Unspecified disturbances of skin sensation; R20.8 Other disturbances of skin sensation; R23.8 Other skin changes | CPT/HCPCS: 11102; 17000; 17110; 99204 ==

== ENCOUNTER → 2025-07-25 09:22 | Outpatient (BNVA) | payer MEDICARE, SELFPAY | PROVIDERS: PCP Nurse Practitioner Family; Visit Provider Internal Medicine Rheumatology | DX: M19.041 Primary osteoarthritis, right hand (principal); M19.042 Primary osteoarthritis, left hand; R76.8 Other specified abnormal immunological findings in serum; Z79.899 Other long term (current) drug therapy; L71.9 Rosacea, unspecified; M06.041 Rheumatoid arthritis without rheumatoid factor, right hand; M06.042 Rheumatoid arthritis without rheumatoid factor, left hand; M76.62 Achilles tendinitis, left leg; M76.61 Achilles tendinitis, right leg | CPT/HCPCS: 36415; 80076; 82306; 82565; 85025; 85651; 86140; 86480; 99214 ==